=== PATIENT | male | born 1955 | race Caucasian/White ===

== ENCOUNTER 2018-06-29 06:40 | Emergency (ER) | payer SELFPAY ==
[~2018-06-29] VITALS: Ht 185.4 cm; Wt 102.1 kg
[2018-06-29] MEDS ORDERED: Catapres0.1 MG PO (07:29)
[2018-06-29] MEDS ORDERED: Zofran Odt4 MG SL (07:29)
[2018-06-29] MEDS ORDERED: Vistaril50 MG PO (07:29)
== END 2018-06-29 07:46 | disposition left against medical advice (07) ==
LOC: ER 06:40
DX: M54.5 Low back pain (principal); G89.29 Other chronic pain
CPT/HCPCS: 99283

== ENCOUNTER 2019-02-10 09:25 | Emergency (ER) | payer SELFPAY ==
[~2019-02-10 09:25] MED LIST: Catapres0.1 MG PO; LIDO700A20 TOP; SUBOXONE 8 MG-1 EACH SL; Vistaril50 MG PO; Zofran Odt4 MG SL
[2019-04-01] MEDS ORDERED: GABA300 (23:28)
[2019-04-02] MEDS ORDERED: NAPR500 PO (00:57)
[2019-04-02] MEDS ORDERED: Neurontin 300300 MG PO (00:57)
== END 2019-02-10 09:53 | disposition left against medical advice (07) ==
LOC: ER 09:25
DX: Z53.21 Procedure and treatment not carried out due to patient leaving prior to being seen by health care provider (principal); H44.009 Unspecified purulent endophthalmitis, unspecified eye

== ENCOUNTER 2019-03-16 09:06 | Emergency (ER) | payer MEDICARE ==
[~2019-03-16] VITALS: Ht 185.4 cm; Wt 87.1 kg
[2019-03-16] MEDS ORDERED: ERYT1OIN LEFTEYE (10:48)
[2019-04-01] MEDS ORDERED: GABA300 (23:28)
[2019-04-02] MEDS ORDERED: NAPR500 PO (00:57)
[2019-04-02] MEDS ORDERED: Neurontin 300300 MG PO (00:57)
== END 2019-03-16 10:59 | disposition home or self-care (01) ==
LOC: ER 09:06
DX: H10.023 Other mucopurulent conjunctivitis, bilateral (principal)
CPT/HCPCS: 99282

== ENCOUNTER 2019-04-02 03:22 | Inpatient (IN) | payer MEDICARE ==
[~2019-04-02] VITALS: Ht 185.4 cm; Wt 86.8 kg
[~2019-04-02 03:22] MED LIST changes: +ERYT1OIN LEFTEYE; +GABA300; +NAPR500 PO; +Neurontin 300300 MG PO
[2019-04-02 03:40] LABS: BASOPHILS ABSOLUTE AUTO 0.05 K/mm3 (0.00-0.23); BASOPHILS PERCENT AUTO 0 % (0-2); EOSINOPHILS PERCENT AUTO 0 % (0-6); Hematocrit 44.6 % (37.0-53.0); Hemoglobin 14.8 g/dL (13.5-17.5); IMMATURE GRAN ABSOLUTE AUTO 0.16 K/mm3 (0.00-0.10); IMMATURE GRAN PERCENT AUTO 1 % (0-1); LYMPHOCYTES ABSOLUTE AUTO 2.36 K/mm3 (0.84-5.20); LYMPHOCYTES PERCENT AUTO 13 % (21-46); MONOCYTES ABSOLUTE AUTO 2.65 K/mm3 (0.16-1.47); MONOCYTES PERCENT AUTO 14 % (4-13); Mean Corpuscular HGB 26.4 pg (26.0-34.0); Mean Corpuscular HGB Conc 33.2 g/dL (31.5-36.5); Mean Corpuscular Volume 80 fL (80-100); Mean Platelet Volume 10.1 fL (9.1-12.4); NEUTROPHILS ABSOLUTE AUTO 13.47 K/mm3 (1.96-9.15); NEUTROPHILS PERCENT AUTO 72 % (41-73); Platelet Count 385 K/mm3 (150-400); RDW Standard Deviation 43.1 fL (35.1-46.3); White Blood Cell Count 18.69 K/mm3 (4.00-11.30)
[2019-04-02 03:57] LABS: Ethanol (Alcohol), Blood, Med <3 mg/dL; Salicylate 3.1 mg/dL (2.8-20.0)
[2019-04-02 04:00] LABS: Thyroid Stimulating Hormone 0.355 uIU/mL (0.360-4.800)
[2019-04-02 04:03] LABS: Acetaminophen, Random 107.7 ug/mL (10.0-30.0); Alanine Aminotransfer (ALT/SGP 304 U/L (12-78); Albumin, Blood 3.7 g/dL (3.4-5.0); Alk Phos 94 U/L (50-136); Anion Gap 9 mmol/L (6-16); Aspartate Aminotrans (AST/SGOT 271 U/L (12-37); Blood Urea Nitrogen 22 mg/dL (8-24); Bun/Creatinine Ratio 30.1 (12.0-20.0); CO2, Blood 25 mmol/L (21-32); Calcium, Blood 8.7 mg/dL (8.5-10.1); Chloride, Blood 102 mmol/L (98-108); Creatinine, Blood 0.73 mg/dL (0.60-1.20); Globulin, Blood 3.7 g/dL (2.2-4.0); Glomerular Filtration Rate >60 (60-); Glucose, Blood 190 mg/dL (70-99); Potassium, Blood 4.7 mmol/L (3.5-5.5); Sodium, Blood 136 mmol/L (136-145); Total Protein, Blood 7.4 g/dL (6.4-8.2)
[2019-04-02 04:34] LABS: International Normalized Ratio 1.4; Prothrombin Time Results 14.4 Sec (9.7-11.5)
[2019-04-02 06:26] LABS: Source, Urine Clean Catch
[2019-04-02 06:31] LABS: Bilirubin, Urine Neg (Neg); Blood, Urine Neg (Neg); Glucose Qualitative, Urine Neg (Neg); Ketones, Urine 3+ (Neg); Leukocyte Esterase, Urine 1+ (Neg); Nitrite, Urine Neg (Neg); Protein, Urine Neg (Neg); Urobilinogen, Urine NORM (Normal)
[2019-04-02 06:37] LABS: Appearance, Urine Clear (Clear); Color, Urine Yellow (P-Yellow)
[2019-04-02 06:39] LABS: Red Blood Cells, Urine 0-2 /hpf (0-2)
[2019-04-02 06:40] LABS: Bacteria Rare /hpf; Squamous Epithelial Cells Rare /hpf (Few)
[2019-04-02 06:51] LABS: U Amphetamine Screen Not Detected; U Barbituate Screen Not Detected; U Methamphetamine Screen Not Detected
[2019-04-02 06:52] LABS: U Benzodiazapine Screen Not Detected; U Buprenorphine Screen DETECTED; U Cannabinoids Screen Not Detected; U Cocaine Screen Not Detected; U Methadone Screen Not Detected; U Opiates Screen Not Detected; U Oxycodone Screen Not Detected; U Phencyclidine Screen Not Detected; U Propoxyphene Screen Not Detected
--- NOTE | 2019-04-02 08:40 | NUR ---
ADMISSION: REPORT RECEIVED FROM ISIDRO Buck RN IN ED. PT ARRIVED TO ICU-08 AT APPROX 0830. ROOM MITIGATION HAS BEEN COMPLETED & DOCUMENTATION IN CHART. PT IS VERY DROWSY ON ARRIVAL TO THE UNIT. TX FROM GURNEY TO BED W/ SLIDER SHEET & 4 STAFF ASSIST. HE IS ANSWERING QUESTIONS & FOLLOWING DIRECTION APPROPRIATELY AT THIS TIME, QUICKLY FALLS BACK ASLEEP ONCE SETTLED. SUICIDE RISK ASSESSMENT HAS NOT BEEN COMPLETED, PT IS UNABLE/ UNWILLING TO ANSWER THE QUESTIONS ON ADMIT. HE OPENLY STS TO THIS RN THAT HE "JUST WANTS TO " & THAT HIS BACK PAIN IS "TOO MUCH TO LIVE WITH." ADMISSION IS COMPLETE, EXCEPT FOR SUICIDE RISK ASSESSMENT, MED REC & ADMISSION HX. WILL CONTINUE TO MONITOR & UPDATE NEEDED.
--- NOTE | 2019-04-02 10:29 | NUR ---
PT REQUESTING PAIN MEDICATION. CALL TO DR HADLEY. RECIEVED ORDER FOR HEATING PAD AND LIDOCAINE PATCHES. PT REFUSED AND STATED HE WANTS TO SPEAK WITH HER. NOTIFIED DR HADLEY OF THIS REQUEST. SHE STATES SHE CAN BE BY TO SEE HIM IN AN HOUR.
--- NOTE | 2019-04-02 12:13 | NUR ---
DR HADLEY CAME TO SEE PT. PT GAVE HER NAME OF PHARMACY AND DOCTOR. LOCATED PHARMACY AND ACQUIRED PT'S MED LIST. DR HADLEY AWARE. TO NOTIFY PT'S SERVICE PLUMBER FOR FURTHER INFORMATION.
[2019-04-02 12:45] LABS: International Normalized Ratio 1.89
[2019-04-02 13:07] LABS: Albumin, Blood 3.3 g/dL (3.4-5.0); Albumin/Globulin Ratio 0.9 (0.8-1.8); Bilirubin, Direct 0.5 mg/dL (0.0-0.3); Bilirubin, Indirect 0.7 mg/dL (0.1-0.7); Bilirubin, Total 1.2 mg/dL (0.1-1.0); Globulin, Blood 3.6 g/dL (2.2-4.0); Total Protein, Blood 6.9 g/dL (6.4-8.2)
--- NOTE | 2019-04-02 13:15 | NUR ---
CALL TO DR HADLEY TO LET HER BE AWARE OF PT'S BIGEMINY OFF AND ON SINCE 114. NO NEW ORDERS AT THIS TIME. COMPUTER SCIENCE INTERN AWARE
[2019-04-02 15:38] LABS: Hematocrit 43.3 % (37.0-53.0); Hemoglobin 14.3 g/dL (13.5-17.5); Mean Corpuscular Volume 79 fL (80-100); Mean Platelet Volume 10.3 fL (9.1-12.4); Platelet Count 358 K/mm3 (150-400); RDW Coefficient Variation 14.9 % (11.7-14.2); RDW Standard Deviation 42.8 fL (35.1-46.3); Red Blood Cell Count 5.49 M/mm3 (4.30-5.90); White Blood Cell Count 22.92 K/mm3 (4.00-11.30)
[2019-04-02 16:01] LABS: Alanine Aminotransfer (ALT/SGP 410 U/L (12-78); Albumin, Blood 3.2 g/dL (3.4-5.0); Alk Phos 89 U/L (50-136); Anion Gap 8 mmol/L (6-16); Aspartate Aminotrans (AST/SGOT 297 U/L (12-37); Bilirubin, Total 1.2 mg/dL (0.1-1.0); Blood Urea Nitrogen 19 mg/dL (8-24); Bun/Creatinine Ratio 29.2 (12.0-20.0); CO2, Blood 24 mmol/L (21-32); Calcium, Blood 8.1 mg/dL (8.5-10.1); Chloride, Blood 109 mmol/L (98-108); Creatinine, Blood 0.65 mg/dL (0.60-1.20); Globulin, Blood 3.3 g/dL (2.2-4.0); Glomerular Filtration Rate >60 (60-); Glucose, Blood 138 mg/dL (70-99); Potassium, Blood 3.3 mmol/L (3.5-5.5); Sodium, Blood 141 mmol/L (136-145); Total Protein, Blood 6.5 g/dL (6.4-8.2)
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
[2019-04-02 18:11] LABS: Prothrombin Time Results 18.9 Sec (9.7-11.5)
--- NOTE | 2019-04-02 18:26 | NUR ---
SHIFT SUMMARY: NO ACUTE CHANGES SINCE PRIOR UPDATES. DR DELGADO NOW ROUNDING IN UNIT, WILL SEE THE PT SOON. HE REMAINS A&O, COOPERATIVE W/ CARE BUT BECOMES IRRITABLE W/ STAFF AT TIMES. LS ARE CLEAR T/O, PT REMAINS ON RA W/ O2 SATS > 92%. MONITOR SHOWS SR W/ AVG 70s. BIGEMINAL PVC's NOTED AT TIMES. PT HAS HAD NO C/O NAUSEA SINCE ADMIT. NPO, TOLERATING ICE CHIPS WELL. VOIDING W/O DIFFICULTY USING URINAL AT BEDSIDE. L WRIST LAC REMAINS WELL DRESSED. SUICIDE PRECAUTIONS IN PLACE, CAMERA ON. WILL CONTINUE TO MONITOR & REPORT OFF TO ONCOMING RN.
--- NOTE | 2019-04-02 20:24 | NUR ---
[place] [facility] Care: Patient sleeping, easily roused to verbal stimuli, oriented x4. Denies suicidal ideations at this time. Patient states he cut his wrist because Emergency Department was not treating his pain. Patient states he has no plan of hurting himself or others. Denies dyspnea or SOB, O2-98% on RA. C/o back pain (chronic), effectively managed with routine does of Suboxone. Laceration to left wrist with gail and coban dressing, C/D/I. Lt hand sensation, temp, color all wnl. 2MD hold in place, patient refusing to sign "civil rights" form, but calm and cooperative with staff. Bed-alarm in place for safety. Will continue to monitor for pain, comfort, safety.
[2019-04-03 00:52] LABS: International Normalized Ratio 2.08; Prothrombin Time Results 20.6 Sec (9.7-11.5)
[2019-04-03 00:56] LABS: Acetaminophen, Random 5.4 ug/mL (10.0-30.0); Albumin, Blood 2.8 g/dL (3.4-5.0); Albumin/Globulin Ratio 0.9 (0.8-1.8); Bilirubin, Direct 0.6 mg/dL (0.0-0.3); Bilirubin, Indirect 0.8 mg/dL (0.1-0.7); Bilirubin, Total 1.4 mg/dL (0.1-1.0); Globulin, Blood 3.1 g/dL (2.2-4.0); Total Protein, Blood 5.9 g/dL (6.4-8.2)
--- NOTE | 2019-04-03 01:17 | NUR ---
Labs/Call to Poison Control: 0000hr labs obtained, showed Tylenol level of 5.4, but LFT continuing to increase. Call placed to Dr. Heart to determine if NAC gtt should be continued, instructed to call Poison Control and follow their recommendation's. Call then placed to Poison Control, received instructions to continue NAC gtt and re-check LFT's, INR, and Tylenol level in 12hr. Also received instruction for criteria to be met for stopping NAC gtt. Criteria includes LFT's decreasing, AST less than 1,000, INR less than 2.0, and Tylenol not detected. Patient continues to be asymptomatic. Will continue to monitor for pain, safety comfort.
[2019-04-03 05:43] LABS: BASOPHILS ABSOLUTE AUTO 0.04 K/mm3 (0.00-0.23); BASOPHILS PERCENT AUTO 0 % (0-2); EOSINOPHILS PERCENT AUTO 0 % (0-6); Hemoglobin 13.3 g/dL (13.5-17.5); IMMATURE GRAN PERCENT AUTO 1 % (0-1); LYMPHOCYTES ABSOLUTE AUTO 1.65 K/mm3 (0.84-5.20); LYMPHOCYTES PERCENT AUTO 10 % (21-46); MONOCYTES ABSOLUTE AUTO 1.09 K/mm3 (0.16-1.47); MONOCYTES PERCENT AUTO 7 % (4-13); Mean Corpuscular HGB 26.1 pg (26.0-34.0); Mean Corpuscular HGB Conc 33.3 g/dL (31.5-36.5); Mean Corpuscular Volume 79 fL (80-100); Mean Platelet Volume 10.3 fL (9.1-12.4); NEUTROPHILS ABSOLUTE AUTO 13.71 K/mm3 (1.96-9.15); NEUTROPHILS PERCENT AUTO 83 % (41-73); Platelet Count 279 K/mm3 (150-400); RDW Coefficient Variation 15.1 % (11.7-14.2); RDW Standard Deviation 43.2 fL (35.1-46.3); Red Blood Cell Count 5.09 M/mm3 (4.30-5.90); White Blood Cell Count 16.59 K/mm3 (4.00-11.30)
[2019-04-03 06:04] LABS: Alanine Aminotransfer (ALT/SGP 574 U/L (12-78); Albumin, Blood 2.7 g/dL (3.4-5.0); Albumin/Globulin Ratio 0.9 (0.8-1.8); Alk Phos 84 U/L (50-136); Anion Gap 4 mmol/L (6-16); Aspartate Aminotrans (AST/SGOT 355 U/L (12-37); Bilirubin, Total 1.4 mg/dL (0.1-1.0); Blood Urea Nitrogen 20 mg/dL (8-24); Bun/Creatinine Ratio 32.7 (12.0-20.0); CO2, Blood 28 mmol/L (21-32); Chloride, Blood 105 mmol/L (98-108); Creatinine, Blood 0.61 mg/dL (0.60-1.20); Globulin, Blood 2.9 g/dL (2.2-4.0); Glomerular Filtration Rate >60 (60-); Glucose, Blood 122 mg/dL (70-99); Magnesium, Blood 2.1 mg/dL (1.6-2.4); Potassium, Blood 3.4 mmol/L (3.5-5.5); Sodium, Blood 137 mmol/L (136-145); Total Protein, Blood 5.6 g/dL (6.4-8.2)
--- NOTE | 2019-04-03 06:07 | NUR ---
Shift Summary: Patient slept through entire shift. Easily roused to verbal stimuli, remains calm and cooperative [facility] staff. C/o back pain effectively managed with routine medication. Denies dyspnea/SOB, O2-93-97$ on RA. Continues on NAC gtt at 65ml/hr, Bilateral peripheral IV's patient intact. Voiding using urinal in bed without difficulty.
[2019-04-03] MEDS ORDERED: MELO7.5 PO (08:06)
--- NOTE | 2019-04-03 08:10 | NUR ---
INITIAL ASSESSMENT PATIENT SLEEPING SOUNDLY UPON ENTERING ROOM. PATIENT WAKES TO VERBAL STIMULI. PATIENT ALERT AND ORIENTED X 4, AFEBRILE. PATIENT CALM AND COOPERATIVE. PATIENT IS NOTED TO HAVE FAST AND EXCESSIVE TALKING. PATIENT STATES "THE ONLY REASON I TRIED TO KILL MYSELF IS BECAUSE I COULDN'T TAKE THE PAIN ANYMORE". PATIENT ASKED IF HE WOULD WANT TO KILL HIMSELF IF HE WASN'T IN ANY PAIN AND PATIENT STATES "WHY WOULD I? I HAVE A GREAT LIFE. IT'S JUST THE PAIN. IT IS SO BAD". PATIENT COMPLAINS OF CURRENT 10 CHRONIC LUMBAR BACK PAIN. PATIENT SATTING 90% AND GREATER ON RA. LUNGS CLEAR T/O. PATIENT IN SR, HR 70S TO 80S. BP STABLE. PULSES STRONG. ABDOMEN SOFT, NONDISTENDED, WITH NORMOACTIVE BS. PATIENT REPORTS THAT HE HAS BEEN HAVING CONSTIPATION LATELY AND HAS NOT HAD A BM SINCE THE . PATIENT USING BED SIDE URINAL INDEPENDENTLY. URINE DARK TEA COLORED. SCAB NOTED TO R LOWER ESPARZA. L WRIST LACERATION NOTED- SELF INFLICTED. SUTURES INTACT. NO S/S OF INFECTION. NO BLEEDING NOTED. DRESSING APPLIED. NAC DRIP INFUSING AT 65 MLS/ HOUR, NS TKO. PATIENT REPOSITIONING SELF IN BED. BED LOW, CALL LIGHT IN REACH. WILL CONTINUE MONITOR FREQUENTLY THROUGHOUT SHIFT.
--- NOTE | 2019-04-03 09:36 | NUR ---
UPDATED DR. HADLEY ON PATIENT STATUS. INFORMED THAT POTASSIUM 3.4 THIS AM. INFORMED THAT PER POISON CONTROL, NAC DRIP TO REMAIN UNTIL LIVER FUNCTION TESTS BEGIN TO DECREASE, TYLENOL LEVEL NOT DETECTED, INR LEVEL UNDER 2 AND AST UNDER 1000. ORDERS RECEIVED. ALSO, INFORMED THAT NO BM SINCE THE - DREsther STATED THAT SHE WOULD ORDER BOWEL CARE.
--- NOTE | 2019-04-03 11:00 | NUR ---
BEBE WITH CARE MANAGEMENT IN TO SEE PATIENT. PATIENT EXPRESSES CONCERNS ABOUT HIS DOG THAT IS HOME ALONE AND HAS NO WATER OR FOOD. PATIENT ALSO EXPRESSES CONCERN THAT HE WOULD LIKE TO UPDATE HIS BROTHER ON HIS STATUS AND INFORM BROTHER ABOUT DOG AND THAT HOUSE IS NOT LOCKED. CARE MANAGEMENT RN STATED THAT SHE WOULD MAKE SOME PHONE CALLS.
[2019-04-03 12:50] LABS: International Normalized Ratio 2.08; Prothrombin Time Results 20.6 Sec (9.7-11.5)
[2019-04-03 13:05] LABS: Acetaminophen, Random <2.0 ug/mL (10.0-30.0); Alanine Aminotransfer (ALT/SGP 761 U/L (12-78); Albumin, Blood 2.7 g/dL (3.4-5.0); Albumin/Globulin Ratio 0.9 (0.8-1.8); Alk Phos 84 U/L (50-136); Aspartate Aminotrans (AST/SGOT 463 U/L (12-37); Bilirubin, Direct 0.6 mg/dL (0.0-0.3); Bilirubin, Indirect 0.8 mg/dL (0.1-0.7); Bilirubin, Total 1.4 mg/dL (0.1-1.0); Globulin, Blood 2.9 g/dL (2.2-4.0); Total Protein, Blood 5.6 g/dL (6.4-8.2)
--- NOTE | 2019-04-03 13:07 | NUR ---
PATIENT SLEEPING SOUNDLY UPON ENTERING ROOM. NO CHANGES IN NEURO FUNCTION. PATIENT HAD BED BATH AND WAS UP TO CHAIR EARLIER IN SHIFT. PATIENT CURRENTLY REPORTING 1.5/ 10 BACK PAIN AND STATES THAT 2/10 PAIN IS MANAGEABLE FOR HIM. VITAL SIGNS STABLE. PATIENT HAS POOR APPETITE. PATIENT GETTING AROUND ROOM WITH SBA. NO OTHER ACUTE CHANGES TO NOTE ON AT THIS TIME. WILL CONTINUE TO MONITOR.
--- NOTE | 2019-04-03 13:30 | NUR ---
POISON CONTROL CALLED FOR SECOND TIME THIS SHIFT. UPDATED ON PATIENT STATUS, VS AND LABS. NAC DRIP TO CONTINUE BASED ON LAB RESULTS. MORE LABS TO BE DRAWN AT 0120 IN MORNING.
--- NOTE | 2019-04-03 14:19 | NUR ---
DR. HADLEY CALLED TO INFORM THAT PATIENT COMPLAINING ABOUT 5/10 BACK PAIN AND THAT IT IS MAKING HIS STOMACH HURT AND MAKING HIM FEEL NAUSEOUS. INFORMED THAT PATIENT FEELS IF FENTANYL PATCH WOULD WORK BEST FOR HIM. ORDER FOR TORADOL RECEIVED.
--- NOTE | 2019-04-03 15:08 | NUR ---
CONSENT FOR MEDICAL RECORDS OBTAINED FROM PATIENT AND FAXED TO THE 2 PAIN CLINICS HE HAS BEEN GOING TO.
--- NOTE | 2019-04-03 16:03 | NUR ---
PATIENT RESTING QUIETLY IN BED UPON ENTERING ROOM. PATIENT STATES HE IS IN 3/10 PAIN IN BACK, WHICH IS IMPROVED FROM 5/10 PAIN EARLIER. PATIENT AFEBRILE. VITAL SIGNS STABLE. MOM GIVEN FOR COMPLAINTS OF CONSTIPATION. PATIENT NAPPING ON AND OFF. NO OTHER ACUTE CHANGES TO NOTE ON AT THIS TIME. WILL CONTINUE TO MONITOR.
--- NOTE | 2019-04-03 17:32 | NUR ---
SPOKE TO DR. DOWNING AND UPDATED ON PATIENT'S STATUS. INFORMED THAT NURSE SPOKE WITH PATIENT'S BROTHER TODAY AND THAT BROTHER IS VERY CONCERNED THAT PATIENT WILL GET PAIN MEDICATIONS LIKE HE IS WANTING AND THEN WILL CONTINUE HAVING PROBLEMS BECAUSE "HE HAS BEEN HAVING MENTAL HEALTH PROBLEMS FOR AROUND 25 YEARS NOW". BROTHER STATES THAT PATIENT IS VERY PARANOID, WITH THOUGHTS THAT FBI ARE AFTER HIM. INFORMED THAT BROTHER FEELS PATIENT NEEDS INPATIENT PSYCH TREATMENT AND IS WORRIED THAT IF PATIENT IS DISCHARGED THAT HE WILL NOT FOLLOW UP WITH ANY OF THE APPOINTMENTS MADE. BROTHER FEELS THAT IF PATIENT IS DISCHARGED AND DOES NOT HAVE INPATIENT PSYCH OR ANYONE TO WATCH HIM THAT THERE WON'T BE ANYTHING TO STOP HIM FROM "CUTTING HIS WRIST AGAIN". DR. DOWNING INFORMED THAT THE PATIENT IS CONCERNED ABOUT BEING DISCHARGED WITHOUT A PRESCRIPTION FOR SOME KIND OF PAIN MEDICATION AND THAT HE WILL TRY AND TAKE HIS LIFE AGAIN IF HE DOESN'T HAVE ANY. PATIENT STATES HE NEEDS A "BRIDGE PRESCRIPTION" TO GET HIM FROM DISCHARGE UNTIL HE CAN SEE A OUTPATIENT AND GET ANOTHER PRESCRIPTION THEN. PATIENT STATES THAT MAYBE HE SHOULD STAY IN HOSPITAL UNTIL OUTPATIENT APPOINTMENT IN ORDER TO STAY SAFE BECAUSE PAIN CAN BE CONTROLLED HERE. HOWEVER, PATIENT THEN RAISES THE CONCERN THAT "DOCTORS DON'T USUALLY GIVE PRESCRIPTIONS FOR PAIN MEDICATION ON THE FIRST VISIT". ALL OF THIS INFORMATION RELAYED TO DR. DOWNING. DOCTOR STATES THAT HE WILL BE TALKING TO DR. HADLEY AND THEN WILL BE GOING IN ROOM TO SEE PATIENT. NO ORDERS OBTAINED AT THIS TIME.
--- NOTE | 2019-04-03 17:55 | NUR ---
SHIFT ASSESSMENT PATIENT NAPPED ON AND OFF T/O THE DAY. PATIENT REMAINED ALERT AND ORIENTED X 4, AFEBRILE. NO PARANOIA NOTED. PATIENT CALM AND COOPERATIVE. PATIENT STATES HE ONLY THINKS ABOUT SUICIDE IF HE CAN'T GET HIS PAIN UNDER CONTROL. PATIENT GIVEN PRN LIDOCAINE PATCHES AND TORADOL FOR COMPLAINTS OF CHRONIC BACK PAIN TODAY. PATIENT REMAINED SATTING 90% AND GREATER ON RA. LUNGS REMAINED CLEAR T.O. PATIENT REMAINED IN SR, HR 60S TO 80S. BP STABLE. MOM GIVEN TODAY REPORTS NO BM SINCE THE . PATIENT HAS POOR APPETITE, BUT IS TOLERATING RENAL DIET WITH NO PROBLEMS. PATIENT CONTINUES TO VOID DARK TEA COLORED URINE. DRESSING TO L WRIST LACERATION REMAINS C/D/I. NS TKO, NAC DRIP REMAINS INFUSING AT 65 MLS/ HOUR. LABS WILL BE TAKEN AGAIN AT 0120 TO ASSESS LIVER FUNCTION, TYLENOL LEVEL AND PT/INR LEVELS. PATIENT RECEIVED 20 MEQ POTASSIUM IV TODAY FOR LEVEL OF 3.4. PATIENT RECEIVED BED BATH THIS SHIFT AND GOT OOB TO CHAIR WITH SBA. BED LOW, CALL LIGHT IN REACH. NO CURRENT COMPLAINTS. REPORT GIVEN TO ASSUMING MEDICAL FLOOR NURSE. PATIENT WILL BE TRANSFERRING TO ROOM 347.
--- NOTE | 2019-04-03 18:12 | NUR ---
Per miya, I was tasked to meet with Mr. Watts to offer advanced care planning. Per RN, he had been given this information and appeared uninterested. He is also being treated for a suicide attempt, therefore this did not seem to be the time for this conversation. I will remain available.
--- NOTE | 2019-04-03 18:31 | NUR ---
PATIENT TRANSFERRED TO MEDICAL FLOOR. ASSUMING NURSE RECEIVED.
[2019-04-04 01:38] LABS: International Normalized Ratio 1.92; Prothrombin Time Results 19.2 Sec (9.7-11.5)
[2019-04-04 01:48] LABS: Acetaminophen, Random 5.9 ug/mL (10.0-30.0)
[2019-04-04 01:49] LABS: Albumin/Globulin Ratio 0.9 (0.8-1.8); Bilirubin, Direct 0.4 mg/dL (0.0-0.3); Bilirubin, Indirect 0.4 mg/dL (0.1-0.7); Bilirubin, Total 0.8 mg/dL (0.1-1.0); Globulin, Blood 2.3 g/dL (2.2-4.0); Total Protein, Blood 4.3 g/dL (6.4-8.2)
[2019-04-04 04:07] LABS: Base Excess Venous 4.2 mmol/L; Bicarbonate Venous 27.9 mmol/L (24.0-30.0); PCO2 Venous 38.7 mmHg (38-42); PO2 Venous 110 mmHg (38-42); pH Blood Venous 7.47 (7.34-7.37)
--- NOTE | 2019-04-04 07:11 | NUR ---
SHIFT SUMMARY PT IS A 63 Y/O MALE, TRANSFERED FROM ICU AFTER A TYLENOL OVERDOSE. HE WAS MEDICATED WITH SCHEDULED SUBOXONE FOR CHRONIC BACK PAIN. PT IS A&O X 3, AND A SBA IN THE ROOM. AFTER PT'S LAB RECHECKS AT 0100, PT'S AST INCREASED FROM 463 TO 1870, AND ALT INCREASED FROM 761 TO 2308. HIS ACETAMINOPHEN LEVELS ALSO INCREASED FROM < 2.0 TO 5.9. PER POISON CONTROL SUGGESTION, AFTER CONSULTING WITH DR EDWARDS, HIS IV ACETYLCYSTEINE DRIP WAS CONTINUED AT ITS CURRENT RATE. A LACTIC ACID AND VBG WERE ALSO ORDER TO ENSURE THAT PT WAS NOT ACIDOTIC. LACTIC CAME BACK CRITICAL AT 2.7. AT AM VITALS AT 0405, PT'S BP WAS AT 75/49. PT REPORTED FEELING WEAK AND LIGHTHEADED, AND WAS PALE WITH COOLER EXTREMITIES COMPARED TO START OF SHIFT. THE HOSPITALIST DR EDWARDS WAS CONSULTED, AND A 500 ML BOLUS WAS ORDERED. AFTER THE BOLUS AT 0517, HIS BP CAME UP TO 82/46. DR EDWARDS WAS CONSULTED AGAIN, AND A 1L BOLUS OF NS ORDERED. AFTER THE 1L BOLUS WAS COMPLETE AT 0640, PT'S BP WAS STILL AT 82/46. PT'S HEART RATE WAS ALSO SLIGHTLY ELEVATED FROM PREVIOUS IN THE 90S. ALL OTHER VITALS STABLE. REPORT GIVEN TO ONCOMING HUGO.
--- NOTE | 2019-04-04 07:50 | NUR ---
PT TRANSFERED THIS AM THE PTS REPEAT BP AFTER 1.5L/MIN OF BOLUS WAS 83/51, LACTIC ACID ELEVATED @ 2.4 REPEAT DRAW WAS 3.7, PT WAS DUSKY IN COLOR, A CALL WAS MADE TO AND IT WAS DECIDED THAT THE PT BE TRANSFERED TO ICU, REPORT WAS GIVEN TO THE RECIEVING ICU NURSE FOR ICU ROOM 1, THE PT WAS ALERT AT TIME OF TRANSFER
--- NOTE | 2019-04-04 07:50 | NUR ---
PT ARRIVAL NOTE: PT ARRIVED VIA BED, TRANSFERRED OVER AND ORIENTED PT TO ROOM. PT DROWSY, BUT AWAKENS EASILY TO VERBAL STIMLULI. PT MAIN CONCERN IS HIS ONGOING CHRONIC BACK PAIN. PT REPORTS HIS PAIN 5/10 IN THE BACK. MULTIPLE TIMES THIS RN WAS EXAMING PT, PT STATES, "THIS IS TOO MUCH, "YOU GUYS DON'T CARE ABOUT MY PAIN," I NEED MY SUBOXONE!" PT TALKS OVER STAFF AND INSIST ON RECEIVING HIS MEDICATIONS, EVEN AFTER EXPLAINING TO PT ABOUT HYPOTENSION AND USE OF NARCOTICS. PT ABLE TO ASSIST WITH TURNS IN THE BED, BUT BACK PAIN LIMITS PT ABILITY TO MOVE. LUNGS ARE CLEAR T/O BILATERALLY. SP02 SATS >90% ON RA. PT REMAINS HYPOTENSIVE AT THIS TIME, DESPITE 1 LITER BOLUS ON MEDICAL FLOOR. WILL DICUSS FURTHER BOLUS WITH . ABD SOFT/FLAT/DENIES PAIN WITH PALPATION. BT'S ACTIVE X4 QAUDS. GIB ODOR NOTED IN ROOM. ASKED PT IF HE HAS HAD A HX OF GIB'S, WHICH PT DENIES. LT WRIST LACERATION, DRSG CHANGED AT THIS TIME TO A [place]. SUTURED WOUND W/MINIMAL SURROUNDING ERYTHEMA, NO DRAINAGE, SUTURES INTACT.
--- NOTE | 2019-04-04 08:18 | NUR ---
CALLED AND UPDATED POISON CONTROL ON RECENT LAB VALUES. NO NEW RECOMMENDATIONS AT THIS TIME. WILL RECHECK BLOODWORK AT 1300 TODAY.
--- NOTE | 2019-04-04 08:39 | NUR ---
CALLED DR HADLEY RE: PT'S UNCONTROLLED BACK PAIN. DR HADLEY REPORTS SHE WILL BE IN TO SEE PT AND DISCUSS PAIN MANAGEMENT. PT GIVEN AM NEURONTIN/PRN TORADOL. OFFERRED HEAT/ICE/PRN LIDOCAINE PATCHES, AND PT DECLINED.
--- NOTE | 2019-04-04 09:03 | NUR ---
DR HADLEY IN TO ASSESS PT AND DISCUSS PAIN CONTROL AND PT CONCERNS. SEE NEW ORDERS.
--- NOTE | 2019-04-04 09:41 | NUR ---
CALLED DR HADLEY RE: CONTINUED HYPOTENSION. STARTED 2ND 500ML NS BOLUS.
--- NOTE | 2019-04-04 10:09 | NUR ---
SPOKE WITH DR FRANCE. ENCOURAGE PT TO DRINK WATER, THEN NPO AT 1300 FOR ENDO.
--- NOTE | 2019-04-04 10:15 | NUR ---
CALLED AND SPOKE WITH DR HADLEY RE: CONTINUED HYPOTENSION DESPITE 1L NS BOLUS. CONSULTING DR ROME. WILL PLACE PICC LINE AND DR ROME TO MANAGE HYPOTENSION.
[2019-04-04 11:23] LABS: PCO2 Venous 44 mmHg (38-42); pH Blood Venous 7.38 (7.34-7.37)
[2019-04-04 11:33] LABS: BASOPHILS ABSOLUTE AUTO 0.01 K/mm3 (0.00-0.23); BASOPHILS PERCENT AUTO 0 % (0-2); EOSINOPHILS PERCENT AUTO 0 % (0-6); Hemoglobin 6.1 g/dL (13.5-17.5); IMMATURE GRAN ABSOLUTE AUTO 0.13 K/mm3 (0.00-0.10); IMMATURE GRAN PERCENT AUTO 1 % (0-1); LYMPHOCYTES PERCENT AUTO 11 % (21-46); MONOCYTES PERCENT AUTO 13 % (4-13); Mean Corpuscular HGB 26.3 pg (26.0-34.0); Mean Corpuscular HGB Conc 32.1 g/dL (31.5-36.5); Mean Corpuscular Volume 82 fL (80-100); NEUTROPHILS ABSOLUTE AUTO 9.62 K/mm3 (1.96-9.15); NEUTROPHILS PERCENT AUTO 75 % (41-73); Platelet Count 161 K/mm3 (150-400); RDW Coefficient Variation 15.3 % (11.7-14.2); RDW Standard Deviation 45.3 fL (35.1-46.3); Red Blood Cell Count 2.32 M/mm3 (4.30-5.90); White Blood Cell Count 12.76 K/mm3 (4.00-11.30)
--- NOTE | 2019-04-04 11:45 | NUR ---
ULTRASOUND OF ABD BEING DONE.
--- NOTE | 2019-04-04 11:45 | NUR ---
PICC LINE PLACED IN THE RT UA WITHOUT DIFFICULTY. AWAITING SLIPS FOR 2 UNITS OF PRBC'S.
[2019-04-04 11:47] LABS: International Normalized Ratio 2.27
[2019-04-04 11:53] LABS: Albumin, Blood 1.6 g/dL (3.4-5.0); Albumin/Globulin Ratio 0.8 (0.8-1.8); Alk Phos 57 U/L (50-136); Anion Gap 6 mmol/L (6-16); Bilirubin, Total 0.4 mg/dL (0.1-1.0); Blood Urea Nitrogen 59 mg/dL (8-24); Bun/Creatinine Ratio 76.1 (12.0-20.0); CO2, Blood 25 mmol/L (21-32); Calcium, Blood 6.8 mg/dL (8.5-10.1); Chloride, Blood 108 mmol/L (98-108); Creatinine, Blood 0.78 mg/dL (0.60-1.20); Globulin, Blood 1.9 g/dL (2.2-4.0); Glomerular Filtration Rate >60 (60-); Glucose, Blood 117 mg/dL (70-99); Prothrombin Time Results 22.3 Sec (9.7-11.5); Sodium, Blood 139 mmol/L (136-145); Total Protein, Blood 3.5 g/dL (6.4-8.2); Troponin I <0.015 ng/mL (0.000-0.040)
[2019-04-04 12:03] LABS: Acetaminophen, Random 8.9 ug/mL (10.0-30.0); Albumin, Blood 1.6 g/dL (3.4-5.0); Albumin/Globulin Ratio 0.8 (0.8-1.8); Bilirubin, Direct 0.2 mg/dL (0.0-0.3); Bilirubin, Indirect 0.2 mg/dL (0.1-0.7); Bilirubin, Total 0.4 mg/dL (0.1-1.0); Globulin, Blood 1.9 g/dL (2.2-4.0); Total Protein, Blood 3.5 g/dL (6.4-8.2)
[2019-04-04 12:05] LABS: Alanine Aminotransfer (ALT/SGP 5137 U/L (12-78); Aspartate Aminotrans (AST/SGOT 4437 U/L (12-37)
--- NOTE | 2019-04-04 12:20 | NUR ---
CHEST/ABD XRAY BEING DONE.
--- NOTE | 2019-04-04 12:45 | NUR ---
STARTED 1ST UNIT PRBC'S. WILL GIVE 2 UNITS PRBC'S, THEN RECHECK BLOOD WORK AFTER THESE ARE COMPLETE.
--- NOTE | 2019-04-04 14:20 | NUR ---
PT UPDATE: PT FINISHED WITH 2ND UNIT PRBC'S. WILL RECHECK H+H IN NEAR FUTURE AND MAINTAIN HGB >8.
[2019-04-04 15:09] LABS: Hematocrit 21.8 % (37.0-53.0); Hemoglobin 7.1 g/dL (13.5-17.5)
--- NOTE | 2019-04-04 16:42 | NUR ---
DR FRANCE IN TO CONSULT ON PT. PT JUST FINISHED USING BEDPAN AND HAD A LARGE MELENA STOOL. DR FRANCE TO BE BACK SOON TO DO ENDOSCOPY R/T CONTINUED S/SX OF GIB. STARTED 3RD UNIT OF BLOOD AND WILL RECHECK H+H AFTER THIS ONE UNIT OF BLOOD.
--- NOTE | 2019-04-04 16:46 | NUR ---
SHIFT SUMMARY: PT REMAINS DROWSY T/O SHIFT, BUT CONT TO AWAKEN EASILY TO VERBAL STIMULI. PT HAS CONT CHRONIC BACK PAIN. PT NORMALLY TAKE SUBOXONE FOR THIS PAIN, HOWEVER, UNABLE TO DO SO AT THIS TIME R/T HIS CLINICAL PICTURE. LUNGS REMAIN CLEAR AFTER 3 LITER BOLUS OF NS, AND CURRENTLY RECEIVING 3RD UNIT PRBC'S. HR REGULAR SR- 90-100'S, 130-140'S WITH EXERTION. PT REPORTS HE "IS DIZZY." PICC LINE PLACED IN RT UA, WITH LEVOPHED @ 7MCG/MIN AT THIS TIME. NAC GTT PER POISON CONTROL RECOMMENDATIONS. SCD'S IN PLACE BILATERALLY. ABD SOFT/ROUND/TENDER TO PALPATION. BT'S HYPERACTIVE 4 QAUD. NPO FOR ENDOSCOPPY PER DR FRANCE. PT VOIDS SM AMTS OF CLEAR, DARK YELLOW URINE PER URINAL.
--- NOTE | 2019-04-04 17:09 | NUR ---
2 UNITS FFP ORDERED STAT PER DR FRANCE, HE WOULD LIKE PT TO RECEIVE THIS PRIOR TO HIS ENDOSCOPY.
--- NOTE | 2019-04-04 18:17 | NUR ---
PT UPDATE: DAY SURGERY STAFF HERE SETTING UP FOR ENDOSCOPY. PT FINISHING UP 2ND UNIT OF FFP.
--- NOTE | 2019-04-04 18:32 | NUR ---
04/04/191831 Pipo Kelley PATIENT DETERMINED TO BE ASA APPROPRIATE FOR PROPOFOL SEDATION PRIOR TO START OF PROCEDURE BY DR. Alon Heath Placed3-LEAD EKG REVIEWED WITH PHYSICIAN PRIOR TO START OF PROCEDURE.History, Chart, Medications and Allergies reviewed before start of procedure.MONITOR INTACT WITH CONTINUOUS PULSE OXIMETRY AND INTERMITTENT BP.O2 VIA N/C INTACT THROUGHOUT SEDATION/PROCEDURE.
[2019-04-04 18:47] LABS: Hematocrit 19.8 % (37.0-53.0); Hemoglobin 6.5 g/dL (13.5-17.5)
--- NOTE | 2019-04-04 19:52 | NUR ---
PT UPDATE: 1899-REPORTED OFF TO HUGO CAGLE WHOM IS ASSUMING CARE OF THIS PT. ENDOSCOPY UNDERWAY AND DUODENAL BLEEDING FOUND PER DR. FRANCE. DR SEGUNDO URGENTLY CALLED AND AWAITING HIS ARRIVAL FOR FURTHER PLAN OF CARE. DR ROME AT THE BEDSIDE FOR ASSISTANCE. PT CURRENTLY ON LEVOPHED @ 20MCG/MIN AND VASOPRESSIN GTT. 192-DR SEGUNDO AT THE BEDSIDE AND WILL BE TAKING PT URGENTLY TO THE OR. RN TECHNICAL INTERN NOTIFIED AND OR CALLED IN. 2 ADD'L UNITS OF PRBC'S STARTED BY HUGO CAGLE. 1927-ETOMIDATE 20MG GIVEN IVP FOR INTUBATION. 1928-ROCURONIUM 20MG GIVEN IVP. 1930-ETOMIDATE 20MG GIVEN IVP FOR INTUBATION. 1934-PT INTUBATED WITH 8.0F ETT, 23CM AT THE LIP. BILATERAL BREATH SOUNDS HEARD.
--- NOTE | 2019-04-04 20:30 | NUR ---
ASSUMED CARE OF PT AT 1900. REPORT RECEIVED AT BEDSIDE. PT IN PROCESS AT THAT TIME OF ENDOSCOPY WITH DR FRANCE. ACTIVE BLEED FOUND. PT TO OR AT 2009. LEVEL ONE MASS TRANSFUSSION IN USE. PT TO RECEIVE PRBC'S, PLATELETS, AND FFP. DID ACCOMPANY PT TO OR AND MANAGED TRANSFUSIONS, AND SUPPORT OF BLOOD PRESSURE. THIS ALL DONE UNDER OR DOCUMENTATION. LEVOPHED AND VASSOPRESSIN FOR SUPPORT. PT HAD BEEN INTUBATED PRIOR TO LEAVING FOR OR. CHEST X RAY WAS DONE AND VERIFIED. PT HAS COPIOUS AMOUNTS OF BLOOD FROM RECTUM.
--- NOTE | 2019-04-04 21:35 | NUR ---
04/04/192133 Paul Mccord PT ARRIVED TO OR VIA BED WITH CLASSICS PROFESSOR GURJIT. YARY RN AND MIRIAN RN ALSO HELPING ASSIT WITH PT CARE. PT WAS MOVED OVER TO OR TABLE BY TEAM. DR LOPEZ AND DR SEGUNDO ATTEMPED TO PLACE AN ARTERIAL ART LINE TO RIGHT WRIST WITH OUT SUCCESS. DR LOPEZ THEN PLACED A CENTRAL LINE TO RIGHT IJ. SEE DR KIM'S NOTES. GURJIT ARIAS AND DR LOPEZ CON'T TO RUN BLOOD AND PLASMA TOGETHER. PT HAD A SIGNIFICANT AMOUNT OF BLOOD POOLED BETWEEN PT'S LEGS AND BUTTOCKS. SOME OF THIS BLOOD WAS CLEANED OFF BY THIS RN AND YARY ARIAS. PT WAS PREPPED FOR SURGERY.
[2019-04-04 22:16] LABS: PCO2 Arterial 52.5 mmHg (35-45); PO2 Arterial 304 mmHg (80-100); pH Blood Arterial 7.31 (7.35-7.45)
[2019-04-04 22:20] LABS: BASOPHILS ABSOLUTE AUTO 0.02 K/mm3 (0.00-0.23); BASOPHILS PERCENT AUTO 0 % (0-2); EOSINOPHILS ABSOLUTE AUTO 0.01 K/mm3 (0.00-0.68); EOSINOPHILS PERCENT AUTO 0 % (0-6); Hemoglobin 8.4 g/dL (13.5-17.5); IMMATURE GRAN ABSOLUTE AUTO 0.59 K/mm3 (0.00-0.10); IMMATURE GRAN PERCENT AUTO 5 % (0-1); LYMPHOCYTES ABSOLUTE AUTO 1.59 K/mm3 (0.84-5.20); LYMPHOCYTES PERCENT AUTO 14 % (21-46); MONOCYTES ABSOLUTE AUTO 1.01 K/mm3 (0.16-1.47); MONOCYTES PERCENT AUTO 9 % (4-13); Mean Corpuscular HGB 28.8 pg (26.0-34.0); Mean Corpuscular HGB Conc 33.6 g/dL (31.5-36.5); Mean Platelet Volume 10.8 fL (9.1-12.4); NEUTROPHILS PERCENT AUTO 72 % (41-73); NRBC ABSOLUTE 0.02 K/mm3 (0.00-0.02); NRBC Auto 0.2 /100 WBC (0.0-0.2); Platelet Count 168 K/mm3 (150-400); RDW Coefficient Variation 14.6 % (11.7-14.2); RDW Standard Deviation 45.1 fL (35.1-46.3); Red Blood Cell Count 2.92 M/mm3 (4.30-5.90); White Blood Cell Count 11.62 K/mm3 (4.00-11.30)
[2019-04-04 22:21] LABS: Mean Corpuscular Volume 86 fL (80-100)
[2019-04-04 22:36] LABS: International Normalized Ratio 1.33
[2019-04-04 22:42] LABS: Magnesium, Blood 1.9 mg/dL (1.6-2.4); Troponin I 0.044 ng/mL (0.000-0.040)
[2019-04-04 22:45] LABS: Alanine Aminotransfer (ALT/SGP 2750 U/L (12-78); Albumin, Blood 2.1 g/dL (3.4-5.0); Alk Phos 65 U/L (50-136); Anion Gap 6 mmol/L (6-16); Aspartate Aminotrans (AST/SGOT 1606 U/L (12-37); Bilirubin, Total 1.8 mg/dL (0.1-1.0); Blood Urea Nitrogen 50 mg/dL (8-24); Bun/Creatinine Ratio 73.7 (12.0-20.0); CO2, Blood 27 mmol/L (21-32); Calcium, Blood 6.9 mg/dL (8.5-10.1); Chloride, Blood 108 mmol/L (98-108); Creatinine, Blood 0.68 mg/dL (0.60-1.20); Globulin, Blood 2.2 g/dL (2.2-4.0); Glomerular Filtration Rate >60 (60-); Glucose, Blood 176 mg/dL (70-99); Potassium, Blood 5.1 mmol/L (3.5-5.5); Prothrombin Time Results 13.7 Sec (9.7-11.5); Sodium, Blood 141 mmol/L (136-145); Total Protein, Blood 4.3 g/dL (6.4-8.2)
--- NOTE | 2019-04-04 22:45 | NUR ---
PT RETURNS FROM OR AT 2150. HAVE BEEN ABLE TO WEAN PT OFF LEVOPHED WELL THE VASOPRESSIN. IS CURRENTLY HYPERTENSIVE. WILL AVOID ANTIHYPERTENSIVES AT THIS TIME SECONDARY TO PREVIOUSLY BEING ON LEVOPHED AND VASOPRESSIN. WILL CONTINUE TO MONITOR. JAGRUTI DRAIN IN PLACE DRAINING SEROUSAINGEOUS DRAINAGE. WOUND VAC OVER MIDLINE INCISION THAT HAD BEEN STAPLED. WOUND VAC SEALED AND REMAINS TO SUCTION. LABS IN PROCESS.
--- NOTE | 2019-04-05 01:03 | NUR ---
CALL MADE EARLIER TO DR ROME WITH UPDATES ON PT'S STATUS WELL LABS VALUES. ORDERS RECEIVED. PT HAS BEEN MEDICATED WITH 25 MCG FENTANYL FOR POST OP PAIN. PT RESTS AND IS ABLE TO TOLERATE ETT WELL. PT RECEIVES FULL BED BATH AND LINEN CHANGE. TOLERATES THIS WELL. PT'S BLOOD PRESSURES HAVE COME DOWN NICELY WITHOUT ANTIHYPERTENSIVES. JAGRUTI DRAIN HAS HAD 405 ML SEROUSAINGEOUS DRAINAGE. WILL CONTINUE TO MONITOR.
[2019-04-05 03:07] LABS: HBSAG SCREEN Negative (Negative); HEP A AB, IGM Negative (Negative); HEP B CORE AB, IGM Negative (Negative); HEP C VIRUS AB <0.1 (0.0-0.9)
[2019-04-05 04:05] LABS: BASOPHILS ABSOLUTE AUTO 0.02 K/mm3 (0.00-0.23); BASOPHILS PERCENT AUTO 0 % (0-2); EOSINOPHILS ABSOLUTE AUTO 0.02 K/mm3 (0.00-0.68); EOSINOPHILS PERCENT AUTO 0 % (0-6); Hematocrit 21.9 % (37.0-53.0); Hemoglobin 7.6 g/dL (13.5-17.5); IMMATURE GRAN ABSOLUTE AUTO 0.09 K/mm3 (0.00-0.10); IMMATURE GRAN PERCENT AUTO 1 % (0-1); LYMPHOCYTES ABSOLUTE AUTO 1.04 K/mm3 (0.84-5.20); LYMPHOCYTES PERCENT AUTO 11 % (21-46); MONOCYTES ABSOLUTE AUTO 1.11 K/mm3 (0.16-1.47); MONOCYTES PERCENT AUTO 11 % (4-13); Mean Corpuscular HGB 29.2 pg (26.0-34.0); Mean Corpuscular HGB Conc 34.7 g/dL (31.5-36.5); Mean Corpuscular Volume 84 fL (80-100); Mean Platelet Volume 10.8 fL (9.1-12.4); NEUTROPHILS PERCENT AUTO 77 % (41-73); NRBC ABSOLUTE 0.02 K/mm3 (0.00-0.02); NRBC Auto 0.2 /100 WBC (0.0-0.2); Platelet Count 158 K/mm3 (150-400); RDW Coefficient Variation 14.7 % (11.7-14.2); RDW Standard Deviation 44.8 fL (35.1-46.3); White Blood Cell Count 9.78 K/mm3 (4.00-11.30)
[2019-04-05 04:21] LABS: International Normalized Ratio 1.3; Prothrombin Time Results 13.5 Sec (9.7-11.5)
[2019-04-05 04:28] LABS: Albumin, Blood 1.9 g/dL (3.4-5.0); Albumin/Globulin Ratio 0.9 (0.8-1.8); Alk Phos 59 U/L (50-136); Anion Gap 5 mmol/L (6-16); Bilirubin, Total 1.5 mg/dL (0.1-1.0); Blood Urea Nitrogen 40 mg/dL (8-24); Bun/Creatinine Ratio 62.7 (12.0-20.0); CO2, Blood 29 mmol/L (21-32); Calcium, Blood 7.3 mg/dL (8.5-10.1); Chloride, Blood 108 mmol/L (98-108); Creatinine, Blood 0.64 mg/dL (0.60-1.20); Globulin, Blood 2.2 g/dL (2.2-4.0); Glomerular Filtration Rate >60 (60-); Glucose, Blood 104 mg/dL (70-99); Potassium, Blood 4.2 mmol/L (3.5-5.5); Sodium, Blood 142 mmol/L (136-145); Total Protein, Blood 4.1 g/dL (6.4-8.2)
[2019-04-05 04:31] LABS: Alanine Aminotransfer (ALT/SGP 2479 U/L (12-78); Aspartate Aminotrans (AST/SGOT 1269 U/L (12-37)
[2019-04-05 05:06] LABS: PCO2 Arterial 41.9 mmHg (35-45); PO2 Arterial 177 mmHg (80-100); pH Blood Arterial 7.43 (7.35-7.45)
--- NOTE | 2019-04-05 06:15 | NUR ---
PT CONTINUES ON VENT WHEREAS FIO2 HAS BEEN TITRATED DOWN TO 50 PERCENT. PT'S TEMP HAS BEEN ELEVATING TO 101.1 REMOVED BLANKETS AND PLACED FAN. WILL CONTINUE TO MONITOR. POISON CONTROL HAS CALLED, UPDATE ON LABS AND VITAL SIGNS GIVEN. RECOMMENDATION IS TO HAVE ANOTHER TYLENOL LEVEL DRAWN DURING THIS MORNING. PT CURRENTLY RECEIVING ONE UNIT PRBC'S AND WILL HAVE H/H DRAWN AT COMPLETION. WILL DO TYLENOL LEVEL AT THAT TIME. HAVE SUCTIONED PT VIA ETT WITH RETURN OF LIGHT YELLOW SECRETIONS. WILL ATTEMPT TO OBTAIN SPUTUM SAMPLE FOR LAB. JAGRUTI DRAINS > 700 ML SEROUSAINGEOUS FLUID. WOUND VAC REMAINS TO SEAL. PT AWAKENS SLIGHTLY WITH TURNS AND ORAL CARE. VERY JAUNDICED IN APPEARANCE. SCLERAL EDEMA NOTED BI LATERAL. LACTIC ACID AT 2.2 THIS AM. SECONDARY TO ELEVATING TEMPERATURE, DID DECREASE PROPOFOL TO 30 MCG'S. PT REMAINS WITH SAS 3-4. WILL CONTINUE TO MONITOR PT, AND WILL REPORT OFF TO ONCOMING RN.
--- NOTE | 2019-04-05 08:13 | NUR ---
PT'S SUICIDE PRECAUTIONS PUT ON HOLD SINCE PT IS CURRENTLY INTUBATED AND SEDATED. WILL REASSESS AND REINSTATE PRECAUTIONS WHEN PT EXTUBATED.
[2019-04-05 08:43] LABS: Hematocrit 22.6 % (37.0-53.0); Hemoglobin 7.9 g/dL (13.5-17.5)
[2019-04-05 09:11] LABS: Acetaminophen, Random 4.7 ug/mL (10.0-30.0); Magnesium, Blood 1.9 mg/dL (1.6-2.4)
--- NOTE | 2019-04-05 09:27 | NUR ---
DR. ROME HERE TO EVALUATE PT. DISCUSSED REPEAT H/H WITH EHR AND SHE GAVE ORDERS TO HOLD OFF ON ORDERING MORE BLOOD AND RECHECK H/H IN [address] ROME GAVE ORDERS FOR IONIZED CA, MG AND PHOS TO BE CHECKED AND REPLACEMENT ORDERED PER PROTOCOL, SEE ORDERS.
[2019-04-05 12:10] LABS: Hematocrit 22.9 % (37.0-53.0)
--- NOTE | 2019-04-05 13:21 | NUR ---
REASSESSMENT: PT'S H/H HAS BEEN STABLE THIS MORNING, NEXT CHECK AT 1830. PT REMAINS INTUBATED AND SEDATED. MOD AMT OF THIN YELLOW SECREITONS, SPUTUM SAMPLE SENT THIS MORNING. LUNGS ARE CLEAR. BP STABLE, SR. PT IS EDEMATOUS, INCREASING IN HIS ARMS. IV FLUIDS STOPPED BY DR. ROME AND LASIX GIVEN. KAYE DRAIN AND HAS BRIGHT RED DRAINAGE AND FEW CLOTS. WOUND VAC REMAINS IN PLACE, NO DRAINAGE IN CHAMBER. PT'S BROTHER CALLED AND WAS GIVEN AN UPDATE. CONTINUING TO MONITOR.
--- NOTE | 2019-04-05 16:30 | NUR ---
SHIFT SUMMARY: PT REMAINED SEDATED AND INTUBATED TODAY. LUNGS ARE CLEAR, DIM IN THE BASES. FIO2 TITRATED DOWN FROM 50% TO 40% TODAY. ABD REMAINS SOFT, MILDLY DISTENDED, RARE BOWEL TONES. DRESSING TO MID ABD C/D/I. KAYE DRAIN CONTINUES TO PUT OUT RED DRAINAGE. GARRIDO WITH CL DARK YELLOW URINE. EXTREMITIES ARE ELEVATED, BUT REMAIN EDEMATOUS. PT'S BROTHER CALLED AGAIN REQUESTING TO SPEAK WITH SECTION WEAVER ABOUT PT'S LIVING CONDITIONS. TRANSFERRED HIM TO HUGO LEA'S PHONE TO SPEAK WITH HER.
[2019-04-05 19:00] LABS: Hematocrit 22.5 % (37.0-53.0); Hemoglobin 7.8 g/dL (13.5-17.5)
--- NOTE | 2019-04-05 20:00 | NUR ---
ASSUMED CARE OF PT AT 1915. REPORT RECEIVED. PT PRESENTS IN BED. VENTED. AC 16, 400 Tv, PEEP 5. PT MAINTAINS > 90 PERCENT WITH FIO2 40 PERCENT. JAGRUTI DRAIN COMPRESSED. MIDLINE DRESSING TO ABDOMEN WITH WOUND VAC TO SEAL. PT IN NO APPARENT DISTRESS. WILL MEDICATE FOR PT WITH ANY INDICATIONS OF POST OP PAIN OR DISCOMFORT. WILL REVIEW CHART AND PLAN OF CARE FOR THIS PT.
--- NOTE | 2019-04-06 | NUR ---
FULL BEDBATH DONE FOR PT. HE TOLERATES THIS WELL. JAGRUTI DRAIN HAS HAD LESS DRAINAGE THIS SHIFT. HAVE EMPTIED 40 ML SEROUSAINGEOUS FLUIDS. NGT TO LIWS WITH MINIMAL OUTPUT. HAVE MEDICATED PT WITH 50 MCG FENTANYL FOR VENT TOLERANCE WELL PROBABLE POST OP AND CHRONIC PAIN. WILL CONTINUE TO MONITOR.
[2019-04-06 00:34] LABS: Hematocrit 21.3 % (37.0-53.0); Hemoglobin 7.3 g/dL (13.5-17.5)
[2019-04-06 04:41] LABS: BASOPHILS ABSOLUTE AUTO 0.03 K/mm3 (0.00-0.23); BASOPHILS PERCENT AUTO 0 % (0-2); EOSINOPHILS ABSOLUTE AUTO 0.12 K/mm3 (0.00-0.68); EOSINOPHILS PERCENT AUTO 1 % (0-6); Hematocrit 21.9 % (37.0-53.0); Hemoglobin 7.6 g/dL (13.5-17.5); IMMATURE GRAN ABSOLUTE AUTO 0.28 K/mm3 (0.00-0.10); IMMATURE GRAN PERCENT AUTO 3 % (0-1); LYMPHOCYTES ABSOLUTE AUTO 1.32 K/mm3 (0.84-5.20); LYMPHOCYTES PERCENT AUTO 15 % (21-46); MONOCYTES PERCENT AUTO 16 % (4-13); Mean Corpuscular HGB 29.2 pg (26.0-34.0); Mean Corpuscular HGB Conc 34.7 g/dL (31.5-36.5); Mean Corpuscular Volume 84 fL (80-100); Mean Platelet Volume 10.8 fL (9.1-12.4); NEUTROPHILS PERCENT AUTO 64 % (41-73); Platelet Count 135 K/mm3 (150-400); RDW Coefficient Variation 15.3 % (11.7-14.2); RDW Standard Deviation 46.8 fL (35.1-46.3); White Blood Cell Count 8.85 K/mm3 (4.00-11.30)
[2019-04-06 05:02] LABS: Albumin, Blood 1.7 g/dL (3.4-5.0); Albumin/Globulin Ratio 0.7 (0.8-1.8); Alk Phos 55 U/L (50-136); Anion Gap 4 mmol/L (6-16); Aspartate Aminotrans (AST/SGOT 322 U/L (12-37); Bilirubin, Total 1.8 mg/dL (0.1-1.0); Blood Urea Nitrogen 23 mg/dL (8-24); Bun/Creatinine Ratio 37.6 (12.0-20.0); CO2, Blood 33 mmol/L (21-32); Calcium, Blood 7.1 mg/dL (8.5-10.1); Chloride, Blood 104 mmol/L (98-108); Creatinine, Blood 0.61 mg/dL (0.60-1.20); Globulin, Blood 2.5 g/dL (2.2-4.0); Glomerular Filtration Rate >60 (60-); Glucose, Blood 125 mg/dL (70-99); Magnesium, Blood 2.2 mg/dL (1.6-2.4); Phosphorus, Blood 2.6 mg/dL (2.5-4.9); Potassium, Blood 3.5 mmol/L (3.5-5.5); Sodium, Blood 141 mmol/L (136-145); Total Protein, Blood 4.2 g/dL (6.4-8.2)
[2019-04-06 05:06] LABS: Alanine Aminotransfer (ALT/SGP 1492 U/L (12-78)
--- NOTE | 2019-04-06 06:17 | NUR ---
PT HAS RESTFUL NIGHT. RIGHT GROIN AND RIGHT RADIAL SITE WITHOUT S/S HEMATOMA OR OOZING. NO COMPLAINTS OF CHEST PAIN. NO FURTHER COMPLAINTS OF INDIGESTION. HAS BEEN UP AND AMBULATE IN UNIT. VSS. NO S/S BRADYCARDIA TO NOTE. WILL CONTINUE TO MONITOR PT, AND WILL REPORT OFF TO ONCOMING RN.
--- NOTE | 2019-04-06 06:27 | NUR ---
CALL MADE TO DR ROME CONCERNING AM LAB OF IONIZED CALCIUM WHICH IS NOT COVERED UNDER ELECTROLYTE PROTOCOL. ORDERS RECEIVED. PT'S HGB HAS REMAINED < 8 ON PAST TWO LAB CHECKS. COVERED BOTH WITH A UNIT OF PACK RED BLOOD CELLS EACH PER STANDING ORDER. PT HAS NO S/S ADVERSE TRANSFUSION REACTIONS. NO ACTIVE S/S REBLEEDING. TOLERATED ANTIBIOTIC THERAPY WELL WITHOUT S/S ADVERSE REACTIONS. PT HAS ALSO HAD LOW GRADE FEVER THROUGHOUT THE NIGHT WITH CURRENT 99.0 WILL CONTINUE TO MONITOR PT, AND WILL REPORT OFF TO ONCOMING RN.
[2019-04-06 10:45] LABS: Hematocrit 26.4 % (37.0-53.0); Hemoglobin 9.1 g/dL (13.5-17.5)
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
--- NOTE | 2019-04-06 16:30 | NUR ---
SEDATION VACATION PROPOFOL PLACED ON STAND BY, PT. BEGAN TO OPEN EYES, LEFT EYE NOTED TO BE RED. DR. NIELSEN NOTIFIED. PT. SHAKING HEAD YES AND NO TO QUESTIONS AND ABLE TO SQUEEZE HANDS TO COMMAND. PT. BEGAN LEANING FORWARD AND REACHING TOWARD TUBE. LEGS RESTLESS, SHAKES HEAD YES TO PAIN. MED FOR PAIN AND SEDATION, PROPOFOL RESTARTED AT 25MCG/KG/MIN. PT VSS. BILAT WRIST RESTRAINTS IN PLACE FOR SAFETY.
--- NOTE | 2019-04-06 17:15 | NUR ---
SHIFT SUMMARY PT. REMAINS SEDATED AND INTUBATED. SHORT SEDATION VACATION TODAY, WHERE PT WAS ABLE TO FOLLOW COMMANDS AND ANSWER YES AND NO QUESTIONS. PT VSS T/O SHIFT. CPN STARTED. REPORT TO ONCOMING RN.
--- NOTE | 2019-04-06 19:30 | NUR ---
ASSUMED CARE PT INTUBATED AT AC16/400/35%/5 AND SEDATED VIA PROPOFOL AT 30MCG/KG/MIN. PT OPENS EYES TO VOICE, FOLLOWS SIMPLE COMMANDS AND NODS YES WHEN ASKED ABOUT QUESTIONS OF PAIN. PT HAS MIDLINE INCISION WITH WOUND VAC IN PLACE, NO DRAINAGE AND A KAYE DRAIN WITH SEROSANGUINEOUS DRAINAGE. NO BM PER DAY SHIFT. NG TO LIS WITH BILE COLORED DRAINAGE. CPN AT 75ML/HR, NAC AT 65ML/HR AND NS TKO. VSS, ECG SHOWS SR AND O2 SATS 95-97% ON PREVIOUSLY NOTED VENT SETTINGS.
--- NOTE | 2019-04-06 20:14 | NUR ---
DR FRANCE HERE UPDATED ON PT, NO BLOOD PER RECTUM, BLOOD LOSS ONLY NOTED THROUGH JAGRUTI. VERIFIED TO TRANSFUSE IF HGB <8 AND PLAN FOR SBT IN AM. NO NEW ORDERS AT THIS TIME.
[2019-04-07 03:54] LABS: BASOPHILS ABSOLUTE AUTO 0.03 K/mm3 (0.00-0.23); BASOPHILS PERCENT AUTO 0 % (0-2); EOSINOPHILS ABSOLUTE AUTO 0.21 K/mm3 (0.00-0.68); EOSINOPHILS PERCENT AUTO 3 % (0-6); Hematocrit 24.3 % (37.0-53.0); Hemoglobin 8.3 g/dL (13.5-17.5); IMMATURE GRAN ABSOLUTE AUTO 0.32 K/mm3 (0.00-0.10); IMMATURE GRAN PERCENT AUTO 4 % (0-1); LYMPHOCYTES ABSOLUTE AUTO 1.14 K/mm3 (0.84-5.20); LYMPHOCYTES PERCENT AUTO 16 % (21-46); MONOCYTES ABSOLUTE AUTO 1.06 K/mm3 (0.16-1.47); MONOCYTES PERCENT AUTO 15 % (4-13); Mean Corpuscular HGB 29.3 pg (26.0-34.0); Mean Corpuscular HGB Conc 34.2 g/dL (31.5-36.5); Mean Corpuscular Volume 86 fL (80-100); Mean Platelet Volume 10.8 fL (9.1-12.4); NEUTROPHILS ABSOLUTE AUTO 4.46 K/mm3 (1.96-9.15); NEUTROPHILS PERCENT AUTO 62 % (41-73); Platelet Count 132 K/mm3 (150-400); RDW Coefficient Variation 15.1 % (11.7-14.2); RDW Standard Deviation 46.6 fL (35.1-46.3); Red Blood Cell Count 2.83 M/mm3 (4.30-5.90); White Blood Cell Count 7.22 K/mm3 (4.00-11.30)
[2019-04-07 04:09] LABS: International Normalized Ratio 1.1; Prothrombin Time Results 11.6 Sec (9.7-11.5)
[2019-04-07 04:16] LABS: Acetaminophen, Random 3.5 ug/mL (10.0-30.0); Magnesium, Blood 2.2 mg/dL (1.6-2.4)
[2019-04-07 04:17] LABS: Alanine Aminotransfer (ALT/SGP 970 U/L (12-78); Albumin, Blood 1.7 g/dL (3.4-5.0); Albumin/Globulin Ratio 0.6 (0.8-1.8); Alk Phos 60 U/L (50-136); Anion Gap 5 mmol/L (6-16); Aspartate Aminotrans (AST/SGOT 112 U/L (12-37); Bilirubin, Total 0.6 mg/dL (0.1-1.0); Blood Urea Nitrogen 15 mg/dL (8-24); Bun/Creatinine Ratio 29.9 (12.0-20.0); CO2, Blood 35 mmol/L (21-32); Calcium, Blood 7.5 mg/dL (8.5-10.1); Chloride, Blood 101 mmol/L (98-108); Globulin, Blood 2.8 g/dL (2.2-4.0); Glomerular Filtration Rate >60 (60-); Glucose, Blood 163 mg/dL (70-99); Phosphorus, Blood 2.3 mg/dL (2.5-4.9); Potassium, Blood 3.5 mmol/L (3.5-5.5); Sodium, Blood 141 mmol/L (136-145); Total Protein, Blood 4.5 g/dL (6.4-8.2); Triglycerides 123 mg/dL (30-160)
[2019-04-07 04:44] LABS: Base Excess Venous 12.7 mmol/L; Bicarbonate Venous 35.1 mmol/L (24.0-30.0); PCO2 Venous 46.8 mmHg (38-42); PO2 Venous 58.3 mmHg (38-42); pH Blood Venous 7.49 (7.34-7.37)
--- NOTE | 2019-04-07 06:36 | NUR ---
SHIFT SUMMARY PT REMAINS INTUBATED, NO CHANGE TO PREVIOUSLY NOTED VENT SETTINGS. SBT COMPLETED THIS AM, TOOK PT 25-30 MINUTES TO WAKE UP ENOUGH TO PARTICIPATE. ONE AWAKE, ALBE TO FOLLOW COMMANDS AND NOD HEAD YES/NO. DURING SBT PT TOLERATED WELL, RR <30, VSS, GOOD VT'S. PROPOFOL RESUMED AT 25MCG/KG/MIN AND PT MEDICATED AFTER INDICATING PAIN. KAYE DRAIN OUTPUT AT 180ML FOR SHIFT, NOTING FROM WOUND VAC. NO BM BUT PT IS PASSING FLATUS. UOP AT 1700ML AND IS DARK. NAC CONTINUES PER POISON CONTROL RECOMMENDATION AT 65ML/HR, CPN AT 75ML/HR AND KPHOS INFUSING PER ELECTROLYTE PROTOCOL.
--- NOTE | 2019-04-07 11:53 | NUR ---
DR. NIELSEN AT BEDSIDE DOING ROUNDS AND REQUESTED ANOTHER WEANING TRIAL. PROPOFOL TURNED OFF AT [address] NIELSEN SWITCHED PT TO SPONTANEOUS MODE ON THE VENT SHORTLY AFTER BECAUSE HE WAS ALREADY AWAKE AND RESPONDING. PT DID WELL ON WEANING AND DR. NIELSEN GAVE ORDERS TO EXTUBATE. PT EXTUBATED AT 1110. PLACED ON 3L AND 94%. PT IS DROWSY, BUT ORIENTED. PT IS VERY CONCERNED ABOUT HIS DOG, UNABLE TO REACH HIS BROTHER, BUT WILL KEEP TRYING TO MAKE SURE PT'S DOG IS BEING CHECKED ON. SINCE PT IS EXTUBATED, SUICIDE RISK REASSESSED, ROOM REMEDIATION DONE AND CAMERA BACK ON IN THE ROOM.
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
--- NOTE | 2019-04-07 19:30 | NUR ---
ASSUMED CARE PT JUST RETURNED TO BED AFTER SITTING UP IN CHAIR. PT EXTUBATED TODAY AND DOING WELL, O2 SATS 96% ON RA. PT WORRIED ABOUT HIS DOG, ASSISTED WITH PHONE CALL TO BROTHER SMILEY-MESSAGE LEFT. PER AM RN, CAMERA ON POST EXTUBATION AND [address] IN PL[address]. PT CONCERNED ABOUT CHRONIC BACK PAIN, DOES NOT COMPLAIN ABOUT ABD PAIN UNDLES MOVING. MIDLINE INCISION TO WOUND VAC WITH DRESSING IN PLACE AND NO DRAINAGE ALONG WITH JAGRUTI TO RLQ WITH BLOOD TINGED FLUID IN BULB. CPN CONTINUES AT 75ML/HR, PLAN TO MAINTAIN NPO STATUS, NAC AT 65ML/HR UNTIL TYLENOL LEVEL <2 PER POISON CONTROL AND NS TKO. VSS, ECG SHOWS SR.
--- NOTE | 2019-04-08 02:23 | NUR ---
UPDATE WHEN AWAKE, PT REQUESTS PAIN MEDS BUT HAS BEEN ABLE TO SLEEP FOR MAJORITY OF SHIFT SO FAR. PT REPORTS BACK PAIN IS WORSE THAN ABD PAIN. LIDOCAINE PATCHES APPLIED, HEAT/COLD OFFERED AND REFUSED, PT REPOSITINED AND IS AGAIN SLEEPING. PT PASSING FLATUS AND BURPING, REPORTS OCCASIONAL NAUSEA BUT HAS HAD NO EMEMSIS OR STOOL THIS SHIFT.
[2019-04-08 04:23] LABS: Hematocrit 25.4 % (37.0-53.0); Hemoglobin 8.5 g/dL (13.5-17.5); Mean Corpuscular HGB 28.6 pg (26.0-34.0); Mean Corpuscular HGB Conc 33.5 g/dL (31.5-36.5); Mean Corpuscular Volume 86 fL (80-100); Mean Platelet Volume 10.4 fL (9.1-12.4); Platelet Count 157 K/mm3 (150-400); RDW Coefficient Variation 15.2 % (11.7-14.2); RDW Standard Deviation 45.2 fL (35.1-46.3); Red Blood Cell Count 2.97 M/mm3 (4.30-5.90); White Blood Cell Count 6.68 K/mm3 (4.00-11.30)
[2019-04-08 04:39] LABS: International Normalized Ratio 1.1; Prothrombin Time Results 11.6 Sec (9.7-11.5)
[2019-04-08 04:43] LABS: BAND PERCENT MAN 3 % (0-8); BASOPHILS PERCENT MAN 0 % (0-2); EOSINOPHILS ABSOLUTE MAN 0.33 K/mm3 (0.00-0.68); EOSINOPHILS PERCENT MAN 5 % (0-6); LYMPHOCYTES ABSOLUTE MAN 0.73 K/mm3 (0.84-5.20); LYMPHOCYTES PERCENT MAN 11 % (21-46); METAMYELOCYTE ABSOLUTE MAN 0.06 K/mm3 (0.00-0.00); METAMYELOCYTE PERCENT MAN 1 % (0-0); MONOCYTES ABSOLUTE MAN 1.13 K/mm3 (0.16-1.47); MONOCYTES PERCENT MAN 17 % (4-13); MYELOCYTE PERCENT MAN 3 % (0-0); SEG NEUTROPHILS PERCENT MAN 60 % (41-73); TOTAL CELLS COUNTED 100
[2019-04-08 04:46] LABS: Alanine Aminotransfer (ALT/SGP 629 U/L (12-78); Albumin, Blood 1.7 g/dL (3.4-5.0); Albumin/Globulin Ratio 0.6 (0.8-1.8); Alk Phos 66 U/L (50-136); Anion Gap 6 mmol/L (6-16); Aspartate Aminotrans (AST/SGOT 45 U/L (12-37); Bilirubin, Total 0.7 mg/dL (0.1-1.0); Blood Urea Nitrogen 14 mg/dL (8-24); Bun/Creatinine Ratio 28.6 (12.0-20.0); CO2, Blood 34 mmol/L (21-32); Calcium, Blood 7.9 mg/dL (8.5-10.1); Chloride, Blood 103 mmol/L (98-108); Creatinine, Blood 0.49 mg/dL (0.60-1.20); Globulin, Blood 2.8 g/dL (2.2-4.0); Glomerular Filtration Rate >60 (60-); Glucose, Blood 149 mg/dL (70-99); Magnesium, Blood 2.1 mg/dL (1.6-2.4); Phosphorus, Blood 2.8 mg/dL (2.5-4.9); Potassium, Blood 3.4 mmol/L (3.5-5.5); Sodium, Blood 143 mmol/L (136-145); Total Protein, Blood 4.5 g/dL (6.4-8.2)
[2019-04-08 04:48] LABS: Acetaminophen, Random 2.2 ug/mL (10.0-30.0)
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
--- NOTE | 2019-04-08 10:36 | NUR ---
DR. DUDLEY HERE AND GAVE OK TO TRY GRAPE JUICE TO SEE IF PT'S DRAIN OUTPUT CHANGES COLOR. POISON CONTROL CALLED AND GAVE OK TO STOP NAC AFTER HEARING PT'S LAB VALUES. DR. NIELSEN INFORMED OF THIS. SHE SAW PT AND GAVE OK FOR PT TO TRANSFER TO SURGICAL FLOOR.
--- NOTE | 2019-04-08 12:28 | NUR ---
TRANSFER: PT TRANSFERRED TO SURGICAL FLOOR 224. REPORT GIVEN TO HUGO KENT. PT TRANSPORTED VIA AND ALL BELONGINGS TRANSFERRED WITH HIM. PT HAD NO CHANGE IN COLOR OF DRAIN OUTPUT BEFORE TRANSFER.
--- NOTE | 2019-04-08 12:28 | NUR ---
PT TO ROOM 224. PT A/O. PT DENIES S/I AT THIS TIME. PT REPORTS CHRONIC PAIN. PT REPORTS NAUSEA AT TIMES. PT REPORTS NOT VOIDING YET AFTER HAVING CATHETER OUT. PT REPORTS PASSING GAS. PT HAS PRAVENA IN PLACE TO ABD THAT APPEARS WNL. PT HAS JAGRUTI IN PLACE. PT ON CAMERA FOR SUICIDE PRECAUTIONS. ROOM WAS SET UP FOR SUICIDE PRECAUTIONS WITH ASSIST FROM HYDROLOGICAL TECHNICAL OFFICER. BELONGINGS LOCKED IN CUPBOARD.
--- NOTE | 2019-04-08 19:18 | NUR ---
SHIFT SUMMARY PT TRANSFER TO 224 TODAY FROM ICU. PT BEEN ASSISTED WITH ADL'S PRN. PT BEEN UP WITH ASSIST TO BATHROOM WITH RN PT IS ON SUICIDAL PRECAUTIONS. PT REPORTING THAT HE DOES NOT HAVE SUICIDAL IDEATION AT THIS TIME. PT ALSO BEING MONITORED BY CAMERA WHICH WAS VERIFIED BY GRADUATE ASSISTANT ATHLETIC TRAINER. PT BATHROOM BEEN LOCKED WHEN NOT IN USE. SUICIDAL PRECAUTIONS BEEN IN PLACE INCLUDING HAVING SHORT CALL LIGHT. PT VOIDING AFTER HAVING CATHETER DC'D IN ICU. BEDSIDE REPORT BEEN GIVEN TO HS RN.
--- NOTE | 2019-04-08 22:21 | NUR ---
PATIENT IS HAVING ACUTE PAIN IN HIS ABDOMEN, iv FENTANYL IS WORING FOR APPROXIMATELY 2 HOURS. MID ABDOMINAL WOUND VAC DRESSING IS DRY WITHOUT ANY DRAINAGE. JAGRUTI DRAIN TO THE RT LOWER QUADANT WITH SS DRAINAGE. PATIENT IS CURRENTLY NOT THINKING ABOUT HARMING SELF. PATIENT IS VISUALIZED IN THE MONITOR ROOM, VISUALIZATION CONFIRMED.
[2019-04-09 04:53] LABS: Hematocrit 27.3 % (37.0-53.0); Hemoglobin 8.9 g/dL (13.5-17.5); Mean Corpuscular HGB 28.9 pg (26.0-34.0); Mean Corpuscular HGB Conc 32.6 g/dL (31.5-36.5); Mean Platelet Volume 10.4 fL (9.1-12.4); Platelet Count 184 K/mm3 (150-400); RDW Coefficient Variation 15.1 % (11.7-14.2); RDW Standard Deviation 47.7 fL (35.1-46.3); Red Blood Cell Count 3.08 M/mm3 (4.30-5.90)
[2019-04-09 04:54] LABS: Mean Corpuscular Volume 89 fL (80-100)
--- NOTE | 2019-04-09 05:02 | NUR ---
NO ACUTE CHANGES. PATIENT IS CALM, AND APPROPRIATE. LESS ACUTE PAIN THAN AT THE BEGINNING OF THE SHIFT. Janna CONTINUES TO DRAIN SS FLUID. MIDLINE WOUND VAC DRESSING IS CLEAR AND DRY, NO DRAINAGE IN THE TUBING. PATIENT HAS BEEN VOIDING PER URINAL. CALL LIGHT IS WITHIN REACH.
[2019-04-09 05:10] LABS: International Normalized Ratio 1.13; Prothrombin Time Results 11.8 Sec (9.7-11.5)
[2019-04-09 05:13] LABS: Alanine Aminotransfer (ALT/SGP 458 U/L (12-78); Albumin/Globulin Ratio 0.7 (0.8-1.8); Alk Phos 78 U/L (50-136); Anion Gap 6 mmol/L (6-16); Aspartate Aminotrans (AST/SGOT 37 U/L (12-37); Bilirubin, Total 0.6 mg/dL (0.1-1.0); Blood Urea Nitrogen 21 mg/dL (8-24); Bun/Creatinine Ratio 39.5 (12.0-20.0); CO2, Blood 31 mmol/L (21-32); Calcium, Blood 7.9 mg/dL (8.5-10.1); Chloride, Blood 104 mmol/L (98-108); Creatinine, Blood 0.53 mg/dL (0.60-1.20); Glomerular Filtration Rate >60 (60-); Glucose, Blood 145 mg/dL (70-99); Magnesium, Blood 2.1 mg/dL (1.6-2.4); Phosphorus, Blood 3.2 mg/dL (2.5-4.9); Potassium, Blood 3.9 mmol/L (3.5-5.5); Sodium, Blood 141 mmol/L (136-145)
[2019-04-09 05:25] LABS: BAND PERCENT MAN 3 % (0-8); BASOPHILS PERCENT MAN 0 % (0-2); EOSINOPHILS ABSOLUTE MAN 0.34 K/mm3 (0.00-0.68); EOSINOPHILS PERCENT MAN 5 % (0-6); LYMPHOCYTES ABSOLUTE MAN 1.36 K/mm3 (0.84-5.20); LYMPHOCYTES PERCENT MAN 20 % (21-46); METAMYELOCYTE ABSOLUTE MAN 0.13 K/mm3 (0.00-0.00); METAMYELOCYTE PERCENT MAN 2 % (0-0); MONOCYTES ABSOLUTE MAN 0.68 K/mm3 (0.16-1.47); MONOCYTES PERCENT MAN 10 % (4-13); NEUTROPHILS ABSOLUTE MAN 4.28 K/mm3 (1.96-9.15); SEG NEUTROPHILS PERCENT MAN 60 % (41-73); TOTAL CELLS COUNTED 100
--- NOTE | 2019-04-09 10:33 | NUR ---
SUICIDE RISK PRECAUTIONS DISCONTINUED PER DR. CLEMENT
--- NOTE | 2019-04-09 15:33 | NUR ---
DR. SEGUNDO IN TO SEE PT, ADVANCED DIET TO FULL LIQUID NOW. PLAN IS TO POSSIBLY DC TPN TOMORROW
--- NOTE | 2019-04-09 16:00 | NUR ---
SUMMARY: PT IS POD1 OPEN COLECTOMY. A/O, VSS. PT IS PASSING GAS AND HAD 2 LIQUID BM'S WITH OLD BLOOD PRESENT. NO ACTIVE BLEED ASSESSED. PT TOLERATED CLEAR LIQUID DIET FOR LUNCH. SURGICAL SITE WNL. JAGRUTI DRAINED X2. PT GIVEN 50-100MCG FOR PAIN, PT ABLE TO REST AND COMPLETE PHYSICAL THERAPY, ALTHOUGH RATES PAIN NO LOWER THAN 5 CONSISTANTLY. PT HAS HX OF CHRONIC BACK PAIN ASWELL. SPOKE WITH DR. CLEMENT CONCERNING PT PAIN, PLAN IS TO CONTINUE SAME INTERVENTIONS WITH IV FENTAYAL. INTERMITTANT NAUSEA TODAY, PT STATES HAVING SOME LIQUIDS ON HIS STOMACH HAS HELPED NAUSEA SUBSIDE. PLAN IS FOR POSSIBLE DC OF TPN TOMORROW/CONTINUE PAIN MANAGEMENT. NO ACUTE SAFETY CONCERNS AT THIS TIME.
[2019-04-10 04:31] LABS: BASOPHILS ABSOLUTE AUTO 0.04 K/mm3 (0.00-0.23); BASOPHILS PERCENT AUTO 1 % (0-2); EOSINOPHILS ABSOLUTE AUTO 0.33 K/mm3 (0.00-0.68); EOSINOPHILS PERCENT AUTO 4 % (0-6); Hematocrit 29.1 % (37.0-53.0); Hemoglobin 9.4 g/dL (13.5-17.5); IMMATURE GRAN ABSOLUTE AUTO 0.49 K/mm3 (0.00-0.10); IMMATURE GRAN PERCENT AUTO 6 % (0-1); LYMPHOCYTES ABSOLUTE AUTO 1.63 K/mm3 (0.84-5.20); LYMPHOCYTES PERCENT AUTO 19 % (21-46); MONOCYTES ABSOLUTE AUTO 0.97 K/mm3 (0.16-1.47); MONOCYTES PERCENT AUTO 12 % (4-13); Mean Corpuscular HGB 28.7 pg (26.0-34.0); Mean Corpuscular HGB Conc 32.3 g/dL (31.5-36.5); Mean Corpuscular Volume 89 fL (80-100); Mean Platelet Volume 10.3 fL (9.1-12.4); NEUTROPHILS ABSOLUTE AUTO 4.94 K/mm3 (1.96-9.15); NEUTROPHILS PERCENT AUTO 59 % (41-73); Platelet Count 218 K/mm3 (150-400); RDW Coefficient Variation 15.1 % (11.7-14.2); RDW Standard Deviation 48.2 fL (35.1-46.3); Red Blood Cell Count 3.28 M/mm3 (4.30-5.90)
[2019-04-10 04:49] LABS: Alanine Aminotransfer (ALT/SGP 341 U/L (12-78); Albumin, Blood 2.1 g/dL (3.4-5.0); Albumin/Globulin Ratio 0.7 (0.8-1.8); Alk Phos 87 U/L (50-136); Anion Gap 5 mmol/L (6-16); Aspartate Aminotrans (AST/SGOT 38 U/L (12-37); Bilirubin, Total 0.5 mg/dL (0.1-1.0); Blood Urea Nitrogen 17 mg/dL (8-24); Bun/Creatinine Ratio 36.2 (12.0-20.0); CO2, Blood 30 mmol/L (21-32); Calcium, Blood 8.1 mg/dL (8.5-10.1); Chloride, Blood 106 mmol/L (98-108); Creatinine, Blood 0.47 mg/dL (0.60-1.20); Globulin, Blood 3.2 g/dL (2.2-4.0); Glomerular Filtration Rate >60 (60-); Glucose, Blood 146 mg/dL (70-99); Potassium, Blood 4.5 mmol/L (3.5-5.5); Sodium, Blood 141 mmol/L (136-145); Total Protein, Blood 5.3 g/dL (6.4-8.2)
[2019-04-10 04:51] LABS: BAND PERCENT MAN 2 % (0-8); BASOPHILS PERCENT MAN 0 % (0-2); EOSINOPHILS ABSOLUTE MAN 0.42 K/mm3 (0.00-0.68); EOSINOPHILS PERCENT MAN 5 % (0-6); LYMPHOCYTES ABSOLUTE MAN 1.34 K/mm3 (0.84-5.20); LYMPHOCYTES PERCENT MAN 16 % (21-46); METAMYELOCYTE ABSOLUTE MAN 0.16 K/mm3 (0.00-0.00); METAMYELOCYTE PERCENT MAN 2 % (0-0); MONOCYTES ABSOLUTE MAN 0.75 K/mm3 (0.16-1.47); MONOCYTES PERCENT MAN 9 % (4-13); NEUTROPHILS ABSOLUTE MAN 5.71 K/mm3 (1.96-9.15); SEG NEUTROPHILS PERCENT MAN 66 % (41-73); TOTAL CELLS COUNTED 100
--- NOTE | 2019-04-10 07:11 | NUR ---
SUMMARY PT REPORTED SLEPT WELL LAST NIGHT. REQUIRIING SUBLIMAZE FOR BACK PAIN. TOLERATING PO.
--- NOTE | 2019-04-10 17:12 | NUR ---
SUMMARY NO ACUTE CHANGES T/O SHIFT. ATTEMPTED TO CHANGE PT'S PAIN CONTROL TO FENTANYL PATCH. PT WAS NOT SATISFIED W/PAIN CONTROL ON PATCH WHICH WAS DC'D PER DR CLEMENT AND PT WAS RESTARTED ON IV FENTANYL. MEDICATED PT PER ORDERS DURING SHIFT FOR BACK AND ABDOMINAL PAIN. JAGRUTI DRAINING SS FLUID. PT REFUSED TO GET UP W/THERAPY BUT GOT OUT OF BED AND AMBULATED IN ROOM AND SAT IN CHAIR WHILE CONTROL ELECTRICIAN WAS IN ROOM.
[2019-04-11 04:44] LABS: BASOPHILS ABSOLUTE AUTO 0.04 K/mm3 (0.00-0.23); BASOPHILS PERCENT AUTO 0 % (0-2); EOSINOPHILS ABSOLUTE AUTO 0.27 K/mm3 (0.00-0.68); EOSINOPHILS PERCENT AUTO 3 % (0-6); Hematocrit 30.6 % (37.0-53.0); IMMATURE GRAN ABSOLUTE AUTO 0.34 K/mm3 (0.00-0.10); IMMATURE GRAN PERCENT AUTO 4 % (0-1); LYMPHOCYTES ABSOLUTE AUTO 1.87 K/mm3 (0.84-5.20); LYMPHOCYTES PERCENT AUTO 21 % (21-46); MONOCYTES ABSOLUTE AUTO 0.88 K/mm3 (0.16-1.47); MONOCYTES PERCENT AUTO 10 % (4-13); Mean Corpuscular HGB Conc 32.7 g/dL (31.5-36.5); Mean Corpuscular Volume 89 fL (80-100); Mean Platelet Volume 10.6 fL (9.1-12.4); NEUTROPHILS ABSOLUTE AUTO 5.73 K/mm3 (1.96-9.15); NEUTROPHILS PERCENT AUTO 63 % (41-73); Platelet Count 250 K/mm3 (150-400); RDW Coefficient Variation 15.3 % (11.7-14.2); RDW Standard Deviation 48.3 fL (35.1-46.3); Red Blood Cell Count 3.45 M/mm3 (4.30-5.90); White Blood Cell Count 9.13 K/mm3 (4.00-11.30)
[2019-04-11 05:01] LABS: Albumin, Blood 2.4 g/dL (3.4-5.0); Albumin/Globulin Ratio 0.7 (0.8-1.8); Bilirubin, Direct 0.4 mg/dL (0.0-0.3); Bilirubin, Indirect 0.4 mg/dL (0.1-0.7); Bilirubin, Total 0.8 mg/dL (0.1-1.0); Globulin, Blood 3.3 g/dL (2.2-4.0); Total Protein, Blood 5.7 g/dL (6.4-8.2)
--- NOTE | 2019-04-11 06:33 | NUR ---
POD 7 S/P DUODENAL ULCER OVERSEW. PT VSS T/O NIGHT; DRESSING CDI. JAGRUTI PUTTING OUT SS DRNG. PT MIESHA REG PO, REP +FLATUS, IS VOIDING URINE W/O DIFFICULTY. PT CONT TO BE VERY ANXIOUS R/T OUT PT PAIN MGMT. PT EDUCATED ON CURRENT PRN ORDERS, WELL RISKS R/T NSAIDS AND TYLENOL W/CURRENT STATE OF HEALTH. PT RECEPTIVE TO INFO, BUT CONT TO VERBALIZE CONCNERS R/T NEED FOR NARCOTIC PAIN MEDS FOR CHRONIC BACK PAIN MGMT. PT USING CALL LIGHT FOR ASSISTANCE, WILL CONT TO MONITOR UNTIL REP GIVEN TO ONCOMING RN.
--- NOTE | 2019-04-11 08:01 | NUR ---
PATIENT STATES HE GOT NO SLEEP LAST NITE AND WANTS LEFT ALONE TODAY TO SLEEP. PATIENT TELLS ME HE HAS A PLAN WORKED OUT TO GO HOME AND DOES NOT WANT TO SEE VEHICLE SERVICE ATTENDANT OR ANY PT/OT TODAY. PATIENT TELLS ME HE WILL REQUEST 100 MCG FENTANYL PATCHES FROM HOSPITALIST
--- NOTE | 2019-04-11 10:25 | NUR ---
ISTRATE IN TO SEE PATIENT. PATIENT REQUEST PAIN REFERRAL TO [facility]. SPOKE WITH FELISA AT THIS OFFICE AND PATIENT RECORDS AND REFERRAL FAXED TO THEM AT [phone]. THIS GENTLEMAN IS A CURRENT PATIENT AT [facility] AND WAS SEEN BY THEM APPROX. 2 WEEKS AGO. [facility] IS TO RETURN MY CALL SO I CAN VERIFY IF THEY HAVE PREVIOUSLY REFERRED PATIENT TO [facility].
--- NOTE | 2019-04-11 10:59 | NUR ---
PCP APPT VERIFIED THAT PATIENT HAS FOLLOW UP APPT 04/12/29 AT 0800 WITH VIVIAN CARRANZA
--- NOTE | 2019-04-11 11:07 | NUR ---
RECEIVED CALL FROM GABY AT [facility]. PATIENT HAS BEEN SEEN BY THEM AND NEEDS IMAGING DONE PRIOR TO FOLLOW UP CARE BEING SCHEDULED.
--- NOTE | 2019-04-11 14:36 | NUR ---
patient multiple calls wishing to discuss his discharge pain meds. discussed with patient that physician will be the one to decide discharge meds. discussed with patient that he will be transported to his pcp appointment tomorrow morning and should discuss meds with pcp.
--- NOTE | 2019-04-11 15:00 | NUR ---
received faxed medical records from [facility]. medical records faxed to edie ibanez
--- NOTE | 2019-04-11 15:17 | NUR ---
received phone call from patients brother,Indio Watts. Informed Indio that patient has requested that we do not speak with him. Indio angry- phoned back two more times to request information. No information was given to Indio Patient spoke with Iza Ramirez RN who also told Indio that we cannot provide any information. Spoke with patient and patient angry- speaking in raised voice and states I should not allow his brother to call here. Patient states he wishes to revoke the consent for verbal consent of information. patient reqests he be listed as confidential, notified admitting. Patient states that his brother is not his POA.
--- NOTE | 2019-04-11 17:15 | NUR ---
DR SEGUNDO HERE TO SEE PATIENT. JAGRUTI PRITCHETT AND STERI STRIPS APPLIED TO SITE. PREVENA REMOVED. DAWN INTACT. NO DRAINAGE, REDNESS OR BRUISING AT SURGICAL SITE
[2019-04-11] MEDS ORDERED: Ciloxan5 ML LEFTEYE (17:26)
[2019-04-11] MEDS ORDERED: HYDR10 PO (17:27)
[2019-04-11] MEDS ORDERED: LIDO700A20 TOP (17:29)
[2019-04-11] MEDS ORDERED: ONDA4ODT MM (17:31)
[2019-04-11] MEDS ORDERED: PANT40 PO (17:31)
[2019-04-11] MEDS ORDERED: Florastor250 MG PO (17:32)
--- NOTE | 2019-04-11 17:50 | NUR ---
SUMMARY PATIENT ANGRY AT TIMES REGARDING PLAN TO DISCHARGE IN AM AND FOLLOW UP WITH PCP FOR PAIN MEDICATIONS. PATIENT IS AWARE THAT PLAN WILL BE TO DISCHARGE VIA TAXI AT 0730 IN THE MORNING FOR FOLLOW UP APPT WITH VIVIAN OVALLE PCP. PATIENT DENIES ANY SI, STATES HE HAS NEVER WANTED TO , THAT HE JUST WANTS HIS CHRONIC BACK PAIN CONTROLLED. PATIENT IS LISTED CONFIDENTIAL PER HIS REQUEST
--- NOTE | 2019-04-12 07:26 | NUR ---
DISCHARGE PT DISCHARGED HOME FROM UNIT AT APROX 0726. PT GIVEN WRITTEN AND VERBAL DISCHARGE INSTRUCTIONS IN ADDITION TO A RELEASE FOR MEDICAL RECORDS PER PATIENT REQUEST. PT VERBALIZED UNDERSTANDING OF THESE INSTUCTIONS BUT REFUSED TO SIGN DISCHARGE SO 2ND RN DESIRE TO PT ROOM TO WITNESS THAT PT RECIEVED INSTUCTIONS AND UNDERSTOOD WITH NO FURTHER QUESTIONS. DISCHARGE INSTUCTIONS REVIEWED FOR A 2ND TIME. WHEELCHAIR TO FRONT OF BUILDING TO MEET TAXI FOR PTS 0800 APT WITH VIVIAN CARRANZA.
--- NOTE | 2019-04-12 07:39 | NUR ---
pt refused to sign discharge teaching/packet. see full charge bookkeeperHUGO Couch note. PICC line removed by full charge bookkeeper WNL, pt provided with scrub top per request. pt escorted to awaiting cab for transfer to PCP appointment at 0800 via wheelchair by HUGO Hwang with belongings carried by pt
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
== END 2019-04-12 07:36 | disposition home or self-care (01) | DRG 907 ==
LOC: ER 03:22 → EOR 03:23 → ERHOLD 03:23 → ER 03:23 → ICUE 05:58 → ERHOLD 05:58 → SURS 05:58 → MEDS 05:58 → ICUE 08:23 → MEDS 04-03 18:15 → ICUE 04-04 07:44 → SURS 04-08 12:43
PROVIDERS: Emergency Medicine; Family Medicine; Internal Medicine; Internal Medicine Critical Care Medicine; Internal Medicine Pulmonary Disease; ADMIT Internal Medicine
PROC: 0XQHXZZ Repair Left Wrist Region, External Approach (ICD-10-PCS; principal; 2019-04-02)
PROC: 0DQ98ZZ Repair Duodenum, Via Natural or Artificial Opening Endoscopic (ICD-10-PCS; 2019-04-04)
PROC: 02HV33Z Insertion of Infusion Device into Superior Vena Cava, Percutaneous Approach (ICD-10-PCS; 2019-04-04)
PROC: 30233N1 Transfusion of Nonautologous Red Blood Cells into Peripheral Vein, Percutaneous Approach (ICD-10-PCS; 2019-04-04)
PROC: 3E033XZ Introduction of Vasopressor into Peripheral Vein, Percutaneous Approach (ICD-10-PCS; 2019-04-04)
PROC: 0BH18EZ Insertion of Endotracheal Airway into Trachea, Via Natural or Artificial Opening Endoscopic (ICD-10-PCS; 2019-04-04)
PROC: 5A1945Z Respiratory Ventilation, 24-96 Consecutive Hours (ICD-10-PCS; 2019-04-04)
PROC: 30233K1 Transfusion of Nonautologous Frozen Plasma into Peripheral Vein, Percutaneous Approach (ICD-10-PCS; 2019-04-05)
PROC: 30233R1 Transfusion of Nonautologous Platelets into Peripheral Vein, Percutaneous Approach (ICD-10-PCS; 2019-04-05)
DX: T39.311A Poisoning by propionic acid derivatives, accidental (unintentional), initial encounter (principal); R57.8 Other shock; K27.4 Chronic or unspecified peptic ulcer, site unspecified, with hemorrhage; J96.00 Acute respiratory failure, unspecified whether with hypoxia or hypercapnia; B17.9 Acute viral hepatitis, unspecified; D62 Acute posthemorrhagic anemia; K22.10 Ulcer of esophagus without bleeding; S61.512A Laceration without foreign body of left wrist, initial encounter; T14.91XA Suicide attempt, initial encounter; G89.29 Other chronic pain; M54.5 Low back pain; I10 Essential (primary) hypertension; K59.00 Constipation, unspecified; F43.21 Adjustment disorder with depressed mood; E87.6 Hypokalemia; I95.9 Hypotension, unspecified; K44.9 Diaphragmatic hernia without obstruction or gangrene; E83.51 Hypocalcemia; E83.39 Other disorders of phosphorus metabolism; H10.9 Unspecified conjunctivitis; T39.1X1A Poisoning by 4-Aminophenol derivatives, accidental (unintentional), initial encounter; Y90.0 Blood alcohol level of less than 20 mg/100 ml; Y92.9 Unspecified place or not applicable
CPT/HCPCS: 12001; 31500; 31720; 36415; 36430; 36569; 36600; 51702; 71045; 74018; 76700; 80053; 80074; 80076; 81001; 82140; 82330; 82803; 82947; 83605; 83735; 83880; 84100; 84132; 84439; 84443; 84478; 84484; 85014; 85018; 85025; 85027; 85384; 85610; 85730; 86850; 86900; 86901; 86923; 87040; 87070; 87077; 87086; 87186; 87205; 93005; 93010; 94002; 94003; 94667; 96361-59; 96365-59; 96366-59; 96372; 96372-59; 96375-59; 97116; 97162; 97167; 97530; 97535; 99283; 99285-25; C1751; C1894; C9113; G0480; J0132; J0360; J0610; J0690; J0696; J1430; J1650; J1885; J1940; J2250; J2405; J2550; J2704; J3010; J3475; J3480; J7030; J7040; J7050; J7060; J7070; J7120; P9016; P9035; P9059; Q9968

== ENCOUNTER 2019-04-12 18:08 | Emergency (ER) | payer MEDICARE ==
[~2019-04-12] VITALS: Ht 185.4 cm; Wt 90.7 kg
[~2019-04-12 18:08] MED LIST changes: +Ciloxan5 ML LEFTEYE; +Florastor250 MG PO; +HYDR10 PO; +MELO7.5 PO; +ONDA4ODT MM; +PANT40 PO
[2019-04-12 19:07] LABS: BASOPHILS ABSOLUTE AUTO 0.04 K/mm3 (0.00-0.23); BASOPHILS PERCENT AUTO 0 % (0-2); EOSINOPHILS ABSOLUTE AUTO 0.13 K/mm3 (0.00-0.68); EOSINOPHILS PERCENT AUTO 1 % (0-6); Hematocrit 32.8 % (37.0-53.0); Hemoglobin 10.6 g/dL (13.5-17.5); IMMATURE GRAN ABSOLUTE AUTO 0.16 K/mm3 (0.00-0.10); IMMATURE GRAN PERCENT AUTO 2 % (0-1); LYMPHOCYTES ABSOLUTE AUTO 1.75 K/mm3 (0.84-5.20); LYMPHOCYTES PERCENT AUTO 17 % (21-46); MONOCYTES ABSOLUTE AUTO 1.29 K/mm3 (0.16-1.47); MONOCYTES PERCENT AUTO 13 % (4-13); Mean Corpuscular HGB Conc 32.3 g/dL (31.5-36.5); Mean Corpuscular Volume 90 fL (80-100); Mean Platelet Volume 11.3 fL (9.1-12.4); NEUTROPHILS ABSOLUTE AUTO 6.66 K/mm3 (1.96-9.15); NEUTROPHILS PERCENT AUTO 66 % (41-73); Platelet Count 336 K/mm3 (150-400); RDW Coefficient Variation 15.5 % (11.7-14.2); RDW Standard Deviation 50.5 fL (35.1-46.3); Red Blood Cell Count 3.65 M/mm3 (4.30-5.90); White Blood Cell Count 10.03 K/mm3 (4.00-11.30)
[2019-04-12 19:21] LABS: Alanine Aminotransfer (ALT/SGP 217 U/L (12-78); Albumin, Blood 2.8 g/dL (3.4-5.0); Albumin/Globulin Ratio 0.7 (0.8-1.8); Alk Phos 107 U/L (50-136); Anion Gap 2 mmol/L (6-16); Aspartate Aminotrans (AST/SGOT 67 U/L (12-37); Bilirubin, Total 0.7 mg/dL (0.1-1.0); Blood Urea Nitrogen 22 mg/dL (8-24); Bun/Creatinine Ratio 34.8 (12.0-20.0); CO2, Blood 30 mmol/L (21-32); Calcium, Blood 8.7 mg/dL (8.5-10.1); Chloride, Blood 104 mmol/L (98-108); Creatinine, Blood 0.63 mg/dL (0.60-1.20); Globulin, Blood 4.1 g/dL (2.2-4.0); Glomerular Filtration Rate >60 (60-); Glucose, Blood 129 mg/dL (70-99); Potassium, Blood 5.3 mmol/L (3.5-5.5); Sodium, Blood 136 mmol/L (136-145); Total Protein, Blood 6.9 g/dL (6.4-8.2)
== END 2019-04-13 00:47 | disposition home or self-care (01) ==
LOC: ER 18:08
PROVIDERS: Physician Assistant
DX: K91.870 Postprocedural hematoma of a digestive system organ or structure following a digestive system procedure (principal); K92.1 Melena; G89.29 Other chronic pain; Z79.899 Other long term (current) drug therapy; Z87.11 Personal history of peptic ulcer disease
CPT/HCPCS: 36415; 74176; 80053; 85025; 99284-25

== ENCOUNTER 2019-04-15 19:15 | Emergency (ER) | payer MEDICARE ==
[~2019-04-15] VITALS: Ht 185.4 cm; Wt 86.2 kg
[2019-04-15 20:00] LABS: BASOPHILS ABSOLUTE AUTO 0.05 K/mm3 (0.00-0.23); BASOPHILS PERCENT AUTO 0 % (0-2); EOSINOPHILS ABSOLUTE AUTO 0.09 K/mm3 (0.00-0.68); EOSINOPHILS PERCENT AUTO 1 % (0-6); Hematocrit 35.4 % (37.0-53.0); Hemoglobin 11.6 g/dL (13.5-17.5); IMMATURE GRAN ABSOLUTE AUTO 0.05 K/mm3 (0.00-0.10); IMMATURE GRAN PERCENT AUTO 0 % (0-1); LYMPHOCYTES ABSOLUTE AUTO 1.99 K/mm3 (0.84-5.20); LYMPHOCYTES PERCENT AUTO 17 % (21-46); MONOCYTES ABSOLUTE AUTO 1.33 K/mm3 (0.16-1.47); MONOCYTES PERCENT AUTO 11 % (4-13); Mean Corpuscular HGB 28.6 pg (26.0-34.0); Mean Corpuscular HGB Conc 32.8 g/dL (31.5-36.5); Mean Platelet Volume 10.8 fL (9.1-12.4); NEUTROPHILS ABSOLUTE AUTO 8.11 K/mm3 (1.96-9.15); NEUTROPHILS PERCENT AUTO 70 % (41-73); Platelet Count 467 K/mm3 (150-400); RDW Coefficient Variation 14.9 % (11.7-14.2); RDW Standard Deviation 47.7 fL (35.1-46.3); Red Blood Cell Count 4.05 M/mm3 (4.30-5.90); White Blood Cell Count 11.62 K/mm3 (4.00-11.30)
[2019-04-15 20:02] LABS: Mean Corpuscular Volume 87 fL (80-100)
[2019-04-15 20:18] LABS: Alanine Aminotransfer (ALT/SGP 97 U/L (12-78); Albumin, Blood 3.2 g/dL (3.4-5.0); Albumin/Globulin Ratio 0.9 (0.8-1.8); Alk Phos 97 U/L (50-136); Anion Gap 7 mmol/L (6-16); Aspartate Aminotrans (AST/SGOT 22 U/L (12-37); Bilirubin, Total 1.2 mg/dL (0.1-1.0); Blood Urea Nitrogen 20 mg/dL (8-24); Bun/Creatinine Ratio 28.5 (12.0-20.0); CO2, Blood 34 mmol/L (21-32); Calcium, Blood 9.3 mg/dL (8.5-10.1); Chloride, Blood 96 mmol/L (98-108); Globulin, Blood 3.7 g/dL (2.2-4.0); Glomerular Filtration Rate >60 (60-); Glucose, Blood 136 mg/dL (70-99); Potassium, Blood 3.2 mmol/L (3.5-5.5); Salicylate <1.7 mg/dL (2.8-20.0); Sodium, Blood 137 mmol/L (136-145); Total Protein, Blood 6.9 g/dL (6.4-8.2)
[2019-04-15 20:23] LABS: Acetaminophen, Random <2.0 ug/mL (10.0-30.0)
[2019-04-15 20:35] LABS: U Amphetamine Screen Not Detected; U Barbituate Screen Not Detected; U Benzodiazapine Screen Not Detected; U Buprenorphine Screen Not Detected; U Cannabinoids Screen DETECTED; U Cocaine Screen Not Detected; U Methadone Screen Not Detected; U Methamphetamine Screen Not Detected; U Opiates Screen Not Detected; U Oxycodone Screen Not Detected; U Phencyclidine Screen Not Detected; U Propoxyphene Screen Not Detected
[2019-04-15] MEDS ORDERED: ACETAMINOPHEN500 MG PO (21:11)
[2019-04-15] MEDS ORDERED: ONDA4ODT MM (21:11)
[2019-04-15] MEDS ORDERED: Protonix40 MG PO (21:11)
== END 2019-04-15 22:19 | disposition home or self-care (01) ==
LOC: ER 19:15
PROVIDERS: Physician Assistant
DX: K92.2 Gastrointestinal hemorrhage, unspecified (principal); M54.5 Low back pain; G89.29 Other chronic pain; F17.200 Nicotine dependence, unspecified, uncomplicated; Z79.899 Other long term (current) drug therapy
CPT/HCPCS: 80053; 82271; 85025; 96374; 96375; 96376; 99284-25; A9270-GY; G0480; J1200; J1630; J2405

== ENCOUNTER 2019-04-18 04:18 | Emergency (ER) | payer MEDICARE ==
[~2019-04-18] VITALS: Ht 175.3 cm; Wt 81.7 kg
[~2019-04-18 04:18] MED LIST changes: +ACETAMINOPHEN500 MG PO; +Protonix40 MG PO
[2019-04-18 04:50] LABS: Calcium, Ionized (POC) 1.09 mmol/L (1.10-1.46); Chloride (POC) 95 mmol/L (98-108); Creatinine (POC) 1.3 mg/dL (0.8-1.3); Glucose (ISTAT POC) 180 mg/dL (70-99); Hemoglobin (POC) 9.2 g/dL (13.5-17.5); Potassium (POC) 4.1 mmol/L (3.5-5.5); Sodium (POC) 131 mmol/L (135-148); Total CO2 (POC) 25 mmol/L (21-32)
[2019-04-18 04:54] LABS: BASOPHILS ABSOLUTE AUTO 0.03 K/mm3 (0.00-0.23); BASOPHILS PERCENT AUTO 0 % (0-2); EOSINOPHILS ABSOLUTE AUTO 0.01 K/mm3 (0.00-0.68); EOSINOPHILS PERCENT AUTO 0 % (0-6); Hematocrit 27.1 % (37.0-53.0); Hemoglobin 9.1 g/dL (13.5-17.5); IMMATURE GRAN ABSOLUTE AUTO 0.19 K/mm3 (0.00-0.10); IMMATURE GRAN PERCENT AUTO 1 % (0-1); LYMPHOCYTES ABSOLUTE AUTO 2.09 K/mm3 (0.84-5.20); LYMPHOCYTES PERCENT AUTO 10 % (21-46); MONOCYTES ABSOLUTE AUTO 1.06 K/mm3 (0.16-1.47); MONOCYTES PERCENT AUTO 5 % (4-13); Mean Corpuscular HGB 29.7 pg (26.0-34.0); Mean Corpuscular HGB Conc 33.6 g/dL (31.5-36.5); Mean Corpuscular Volume 89 fL (80-100); Mean Platelet Volume 11.1 fL (9.1-12.4); NEUTROPHILS ABSOLUTE AUTO 16.92 K/mm3 (1.96-9.15); NEUTROPHILS PERCENT AUTO 84 % (41-73); Platelet Count 511 K/mm3 (150-400); RDW Coefficient Variation 14.6 % (11.7-14.2); RDW Standard Deviation 46.9 fL (35.1-46.3); Red Blood Cell Count 3.06 M/mm3 (4.30-5.90)
[2019-04-18 05:02] LABS: International Normalized Ratio 1.25
[2019-04-18 05:13] LABS: Alanine Aminotransfer (ALT/SGP 48 U/L (12-78); Albumin, Blood 2.8 g/dL (3.4-5.0); Albumin/Globulin Ratio 0.9 (0.8-1.8); Alk Phos 76 U/L (50-136); Anion Gap 10 mmol/L (6-16); Aspartate Aminotrans (AST/SGOT 17 U/L (12-37); Bilirubin, Total 0.6 mg/dL (0.1-1.0); Blood Urea Nitrogen 62 mg/dL (8-24); Bun/Creatinine Ratio 57.4 (12.0-20.0); CO2, Blood 24 mmol/L (21-32); Calcium, Blood 8.1 mg/dL (8.5-10.1); Chloride, Blood 100 mmol/L (98-108); Creatinine, Blood 1.08 mg/dL (0.60-1.20); Globulin, Blood 3.2 g/dL (2.2-4.0); Glomerular Filtration Rate >60 (60-); Glucose, Blood 186 mg/dL (70-99); Potassium, Blood 4.1 mmol/L (3.5-5.5); Sodium, Blood 134 mmol/L (136-145)
[2019-04-18 06:20] LABS: Calcium, Ionized (POC) 1.14 mmol/L (1.10-1.46); Chloride (POC) 97 mmol/L (98-108); Creatinine (POC) 1.2 mg/dL (0.8-1.3); Glucose (ISTAT POC) 144 mg/dL (70-99); Hemoglobin (POC) 9.2 g/dL (13.5-17.5); Potassium (POC) 3.6 mmol/L (3.5-5.5); Sodium (POC) 133 mmol/L (135-148); Total CO2 (POC) 27 mmol/L (21-32)
== END 2019-04-18 09:00 | disposition short-term general hospital (02) ==
LOC: ER 04:18
PROVIDERS: Emergency Medicine
DX: K92.2 Gastrointestinal hemorrhage, unspecified (principal); F43.21 Adjustment disorder with depressed mood; Z79.899 Other long term (current) drug therapy
CPT/HCPCS: 36415; 80047; 80053; 83690; 85014; 85025; 85610; 93005; 93010; 96361; 96365; 96366; 96375; 99285-25; C9113; G0480; J2405; J2550; J3010; J7030

== ENCOUNTER 2019-04-27 14:57 | Inpatient (IN) | payer MEDICARE, OTHER ==
[~2019-04-27] VITALS: Ht 185.4 cm; Wt 85.9 kg
[2019-04-27 15:37] LABS: BASOPHILS ABSOLUTE AUTO 0.02 K/mm3 (0.00-0.23); BASOPHILS PERCENT AUTO 0 % (0-2); EOSINOPHILS ABSOLUTE AUTO 0.02 K/mm3 (0.00-0.68); EOSINOPHILS PERCENT AUTO 0 % (0-6); Hemoglobin 7.7 g/dL (13.5-17.5); IMMATURE GRAN ABSOLUTE AUTO 0.07 K/mm3 (0.00-0.10); IMMATURE GRAN PERCENT AUTO 2 % (0-1); LYMPHOCYTES ABSOLUTE AUTO 0.95 K/mm3 (0.84-5.20); LYMPHOCYTES PERCENT AUTO 20 % (21-46); MONOCYTES ABSOLUTE AUTO 0.38 K/mm3 (0.16-1.47); MONOCYTES PERCENT AUTO 8 % (4-13); Mean Corpuscular HGB 27.8 pg (26.0-34.0); Mean Corpuscular HGB Conc 30.8 g/dL (31.5-36.5); Mean Platelet Volume 10.1 fL (9.1-12.4); NEUTROPHILS PERCENT AUTO 70 % (41-73); Platelet Count 276 K/mm3 (150-400); RDW Standard Deviation 49.2 fL (35.1-46.3); Red Blood Cell Count 2.77 M/mm3 (4.30-5.90); White Blood Cell Count 4.74 K/mm3 (4.00-11.30)
[2019-04-27 15:38] LABS: Mean Corpuscular Volume 90 fL (80-100)
[2019-04-27] MEDS ORDERED: GABA300 PO (15:41)
[2019-04-27] MEDS ORDERED: OMEPRAZOLE20 MG PO (15:41)
[2019-04-27 15:51] LABS: International Normalized Ratio 1.02; Prothrombin Time Results 10.8 Sec (9.7-11.5)
[2019-04-27 15:55] LABS: Alanine Aminotransfer (ALT/SGP 27 U/L (12-78); Albumin, Blood 2.4 g/dL (3.4-5.0); Albumin/Globulin Ratio 0.8 (0.8-1.8); Alk Phos 84 U/L (50-136); Anion Gap 1 mmol/L (6-16); Aspartate Aminotrans (AST/SGOT 18 U/L (12-37); Bilirubin, Total 0.4 mg/dL (0.1-1.0); Blood Urea Nitrogen 9 mg/dL (8-24); Bun/Creatinine Ratio 16.1 (12.0-20.0); CO2, Blood 31 mmol/L (21-32); Calcium, Blood 8.2 mg/dL (8.5-10.1); Chloride, Blood 108 mmol/L (98-108); Creatinine, Blood 0.56 mg/dL (0.60-1.20); Globulin, Blood 3.1 g/dL (2.2-4.0); Glomerular Filtration Rate >60 (60-); Glucose, Blood 117 mg/dL (70-99); Magnesium, Blood 2.1 mg/dL (1.6-2.4); Potassium, Blood 3.9 mmol/L (3.5-5.5); Sodium, Blood 140 mmol/L (136-145); Total Protein, Blood 5.5 g/dL (6.4-8.2); Troponin I <0.015 ng/mL (0.000-0.040)
[2019-04-27] MEDS ORDERED: ROXICODONE5 MG PO (16:20)
--- NOTE | 2019-04-27 17:27 | NUR ---
ATTEMPT TO GET PT REPORT. HUGO MOREIRA TO CALL BACK.
--- NOTE | 2019-04-27 17:53 | NUR ---
REPORT FROM LILLIE WELCH RN.
--- NOTE | 2019-04-27 18:16 | NUR ---
PT TO PCU 6 VIA STRETCHER FROM ER. PT ALERT AND ORIENTED ON ARRIVAL. IV PROTONIX INF WELL. BLOOD PRODUCTS INFUSING. ORIENTED PT TO ROOM, URINAL PROVIDED. CALL LIGHT IN REACH, THERMOSTAT ADJUSTED PER PT REQUEST.
--- NOTE | 2019-04-27 18:42 | NUR ---
PT PLACED ON TELE PER ADMIT ORDERS.
--- NOTE | 2019-04-27 18:49 | NUR ---
CONSULT CALLED TO DR VICK ANSWERING SERVICE. STAFF WILL NOTIFY DR MORALES OF PT IN THE MORNING.
[2019-04-28 04:01] LABS: Hematocrit 25.2 % (37.0-53.0); Hemoglobin 7.8 g/dL (13.5-17.5); Mean Corpuscular HGB 26.6 pg (26.0-34.0); Mean Platelet Volume 9.6 fL (9.1-12.4); Platelet Count 248 K/mm3 (150-400); RDW Coefficient Variation 15.9 % (11.7-14.2); RDW Standard Deviation 50.4 fL (35.1-46.3); Red Blood Cell Count 2.93 M/mm3 (4.30-5.90); White Blood Cell Count 5.25 K/mm3 (4.00-11.30)
[2019-04-28 04:11] LABS: Mean Corpuscular Volume 86 fL (80-100)
--- NOTE | 2019-04-28 06:15 | NUR ---
SHIFT SUMMARY PT SLEEPING IN ROOM COMFORTABLY AT THIS TIME. NO ACUTE CHANGES IN STATUS T/O NIGHT. PT SLEPT WELL IN PERIODS AND AWOKE 4Q HR FOPR PAIN MEDS. PT HAS PROTONIX GTT INFUSING IN PIV. PT RECEIVED 1 UNIT PRBC'S YESTERDAY THAT FINISHED AT APPROX 1999. PT TOLERATED WELL. HGB REMAINS LOW, PT HAS NO SIGNS OF ACTIVE BLEEDING. ABD SOFT NONTENDER. RESP EVEN UNLABORED ON RA W/ SATS >92%. DENIES CP, DENIES SOB. CALL LIGHT WITHIN REACH.
--- NOTE | 2019-04-28 08:17 | NUR ---
History, Chart, Medications and Allergies reviewed before start of procedure. Patient confirms NPO status and agrees with scheduled surgery.
--- NOTE | 2019-04-28 08:31 | NUR ---
04/28/19 0831 Pipo Kelley Bite Block Placed. Patient to ENDO 1History, Chart, Medications and Allergies reviewed before start of procedure.MONITOR INTACT WITH CONTINUOUS PULSE OXIMETRY AND INTERMITTENT BP.See Anesthesia record
--- NOTE | 2019-04-28 16:59 | NUR ---
SHIFT SUMMARY PT A&Ox4. CALM AND COOPERATIVE WITH CARE. PT RESTING IN BED DURING SHIFT, APPEARS TO BE SLEEPING T/O SHIFT. PT HAS EGD COMPLETED THIS AM. PT REPORTS PAIN IN ABD AND BACK, MEDICATE x2 WITH POSITIVE RESULTS. PT REPORTS NAUSEA, MEDICATED WITH ZOFRANx1 THIS AM. PT DENIES SOB, BREATHING EVEN AND UNLABORED. PT RECEIVING IV PROTONIX. VSS. NO OTHER ACUTE CHANGES NOTED DURING SHIFT. WILL CONTINUE TO MONITOR UNITL REPORT TO ONCOMING RN.
--- NOTE | 2019-04-29 05:28 | NUR ---
SHIFT SUMMARY PT SLEEPING IN ROOM COMFORTABLY AT THIS TIME. NO ACUTE CHANGES IN STATSU T/O NIGHT. PT SLEPT WELL AND DENIED NEEDS. WOKE FOR PAIN MEDS TWICE AND PT WAS MEDICATED PER EMAR. RESP EVEN UNLABORED ON RA W/ SATS >92%, DENIES SOB. DENIES CP. PROTONIX GTT INFUSING IN PIV. CALL LIGHT IN REACH.
--- NOTE | 2019-04-29 11:45 | NUR ---
TRANSFER NOTE REPORT GIVE TO HUGO DURHAM ON MEDICAL FLOOR. PT TRANSFERED TO ROOM 334. PT A&Ox4. PT IS ANXIOUS TODAY REGARDING DISCHARGE AND PAIN MANAGEMENT. DR ORTEGA, THIS RN AND HOUSEKEEPING CLEANER INGRID HAVE EDUCATED PT ON PAIN MANAGEMENT, PT STATES HE HAS A REFERRAL TO A PAIN CLINIC IN [place], PANEL FLOW MACHINE OPERATOR CONSULTED TO ASSIST WITH DISCHARGE PLANNING AND APPOINTMENTS. PT REPORTS ABD AND BACK PAIN, MEDICATED x1 WITH AM WITH OXYCODONE. PT RECEIVING IV PROTONIX AND PO CARAFATE. PT REPORTS NAUSEA THIS AM, MEDICATED x1 WITH ZOFRAN WITH POSITIVE RESULTS. PT DENIES SOB, >94% ON RA. PT REPORTS 1 BM THIS AM, FLUSHED PRIOR TO STAFF SEEING IT, PT REPORTS SMALL RED SPOT ON TOILET PAPER. REPORT GIVEN TO RN. PT TO ROOM VIA WHEELCHAIR.
--- NOTE | 2019-04-29 17:46 | NUR ---
PATIENT TRANSFERRED FROM PCU THIS AFTERNOON. HE HAS BEEN COMPLAINING OF BACK PAIN AND "NOT BEING ALBE TO GET THE HELP OR PROCEDURES DONE SINCE MOVING HERE" MOST OF THE SHIFT. HE APPEARS DEPRESSED AND EVEN WITH PAIN MEDS IS STATING HE IS IN PAIN. HE HAS HAD NO COMPLAINTS OF BELLY PAIN, JUST CHRONIC BACK PAIN. HE HAS NOT TRIED TO GET OUT OF BED, USES HIS CALL LIGHT NEEDED, AND IS ABLE TO EXPRESS ANY NEEDS.
--- NOTE | 2019-04-29 20:21 | NUR ---
1944: ASSUMED CARE OF PATIENT. PT SLEEPING QUIETLY AND IN NO APPARENT DISTRESS. BED LOW AND LOCKED. RR EVEN AND UNLABORED. CALL BELTRÁN WITHIN REACH
[2019-04-30 05:00] LABS: Hematocrit 27.2 % (37.0-53.0); Hemoglobin 8.4 g/dL (13.5-17.5); Mean Corpuscular HGB 26.5 pg (26.0-34.0); Mean Corpuscular HGB Conc 30.9 g/dL (31.5-36.5); Mean Corpuscular Volume 86 fL (80-100); Mean Platelet Volume 9.9 fL (9.1-12.4); Platelet Count 210 K/mm3 (150-400); RDW Coefficient Variation 15.3 % (11.7-14.2); RDW Standard Deviation 48.5 fL (35.1-46.3); Red Blood Cell Count 3.17 M/mm3 (4.30-5.90); White Blood Cell Count 4.66 K/mm3 (4.00-11.30)
[2019-04-30] MEDS ORDERED: PANT40 PO (11:38)
--- NOTE | 2019-04-30 12:24 | NUR ---
DISCHARGE INSTRUCTIONS REVIEWED WITH PT. IV DC'D INTACT. RX FAXED TO [facility]. HARD SCRIPT FOR OXY GIVEN TO PT. PT REPORTS HE DOES NOT HAVE A RIDE OR MONEY FOR A RIDE HOME. SPOKE WITH PT ADVOCATE AND COURTESY TAXI CALLED PER [facility]. AWAITING ESCORT OUT AT THIS TIME. F/U MADE WITH PALLAVI RASMUSSEN IN PCP'S OFFICE, PCP NOT AVAILABLE FOR APPT THIS WEEK, APPT MADE FOR TOMORROW AM.
--- NOTE | 2019-04-30 12:42 | NUR ---
PT DC'D HOME AT 1234, ESCORTED OUT VIA W/C TO [facility].
== END 2019-04-30 12:34 | disposition home or self-care (01) | DRG 378 ==
LOC: ER 14:57 → PCU 14:58 → ER 14:58 → PCU 18:10 → MEDS 04-28 15:37 → PCU 04-29 11:32 → MEDS 04-29 11:32 → ENPENDDIS 04-30 11:14 → MEDS 04-30 12:34
PROVIDERS: Emergency Medicine; ADMIT Internal Medicine
PROC: 0DJ08ZZ Inspection of Upper Intestinal Tract, Via Natural or Artificial Opening Endoscopic (ICD-10-PCS; 2019-04-28)
PROC: 30233N1 Transfusion of Nonautologous Red Blood Cells into Peripheral Vein, Percutaneous Approach (ICD-10-PCS; principal; 2019-04-29)
DX: K26.4 Chronic or unspecified duodenal ulcer with hemorrhage (principal); D62 Acute posthemorrhagic anemia; Z98.1 Arthrodesis status; Z87.891 Personal history of nicotine dependence; M54.9 Dorsalgia, unspecified; K20.9 Esophagitis, unspecified; F43.21 Adjustment disorder with depressed mood
CPT/HCPCS: 36415; 36430; 80048; 80053; 83690; 83735; 84484; 85025; 85027; 85610; 86850; 86900; 86901; 86923; 93005; 93010; 96361; 96365; 96366; 96375; 96376; 99285-25; C9113; G0378; J1170; J2405; J2704; J7030; J7120; P9016

== ENCOUNTER 2019-05-02 13:30 | Emergency (ER) | payer MEDICARE, OTHER ==
[~2019-05-02] VITALS: Ht 185.4 cm; Wt 81.7 kg
[~2019-05-02 13:30] MED LIST changes: +GABA300 PO; +OMEPRAZOLE20 MG PO; +ROXICODONE5 MG PO
[2019-05-02 14:20] LABS: BASOPHILS ABSOLUTE AUTO 0.02 K/mm3 (0.00-0.23); BASOPHILS PERCENT AUTO 1 % (0-2); EOSINOPHILS ABSOLUTE AUTO 0.04 K/mm3 (0.00-0.68); EOSINOPHILS PERCENT AUTO 1 % (0-6); Hemoglobin 8.9 g/dL (13.5-17.5); IMMATURE GRAN ABSOLUTE AUTO 0.02 K/mm3 (0.00-0.10); IMMATURE GRAN PERCENT AUTO 1 % (0-1); LYMPHOCYTES ABSOLUTE AUTO 1.19 K/mm3 (0.84-5.20); LYMPHOCYTES PERCENT AUTO 32 % (21-46); MONOCYTES PERCENT AUTO 8 % (4-13); Mean Corpuscular HGB 26.8 pg (26.0-34.0); Mean Corpuscular HGB Conc 30.7 g/dL (31.5-36.5); Mean Corpuscular Volume 87 fL (80-100); Mean Platelet Volume 10.4 fL (9.1-12.4); NEUTROPHILS PERCENT AUTO 57 % (41-73); Platelet Count 201 K/mm3 (150-400); RDW Coefficient Variation 15.1 % (11.7-14.2); Red Blood Cell Count 3.32 M/mm3 (4.30-5.90); White Blood Cell Count 3.67 K/mm3 (4.00-11.30)
[2019-05-02 15:15] LABS: Alanine Aminotransfer (ALT/SGP 21 U/L (12-78); Albumin, Blood 2.8 g/dL (3.4-5.0); Albumin/Globulin Ratio 0.8 (0.8-1.8); Alk Phos 86 U/L (50-136); Anion Gap 7 mmol/L (6-16); Aspartate Aminotrans (AST/SGOT 17 U/L (12-37); Bilirubin, Total 0.4 mg/dL (0.1-1.0); Blood Urea Nitrogen 11 mg/dL (8-24); Bun/Creatinine Ratio 19.1 (12.0-20.0); CO2, Blood 26 mmol/L (21-32); Calcium, Blood 8.4 mg/dL (8.5-10.1); Chloride, Blood 108 mmol/L (98-108); Creatinine, Blood 0.58 mg/dL (0.60-1.20); Globulin, Blood 3.3 g/dL (2.2-4.0); Glomerular Filtration Rate >60 (60-); Glucose, Blood 119 mg/dL (70-99); Potassium, Blood 3.8 mmol/L (3.5-5.5); Sodium, Blood 141 mmol/L (136-145); Total Protein, Blood 6.1 g/dL (6.4-8.2)
== END 2019-05-02 17:12 | disposition home or self-care (01) ==
LOC: ER 13:30
PROVIDERS: Emergency Medicine
DX: R42 Dizziness and giddiness (principal); K92.2 Gastrointestinal hemorrhage, unspecified; G89.29 Other chronic pain; M54.9 Dorsalgia, unspecified; Z87.891 Personal history of nicotine dependence
CPT/HCPCS: 36415; 80053; 85025; 86850; 86900; 86901; 93005; 93010; 96361; 96374; 99284-25; J2405; J7120

== ENCOUNTER 2019-09-28 09:38 | Emergency (ER) | payer MEDICARE, OTHER ==
[~2019-09-28] VITALS: Ht 185.4 cm; Wt 90.7 kg
[2019-09-28] MEDS ORDERED: SUBOXONE 8 MG-1 EACH SL (10:47)
[2019-09-28] MEDS ORDERED: ERYT1OIN LEFTEYE (10:54)
== END 2019-09-28 11:19 | disposition home or self-care (01) ==
LOC: ER 09:38
DX: H10.9 Unspecified conjunctivitis (principal); H53.9 Unspecified visual disturbance; Z79.899 Other long term (current) drug therapy; Z87.891 Personal history of nicotine dependence
CPT/HCPCS: 99282

== ENCOUNTER 2020-02-17 10:35 | Emergency (ER) | payer MEDICARE, OTHER ==
[~2020-02-17] VITALS: Ht 188 cm; Wt 99.8 kg
[~2020-02-17 10:35] MED LIST changes: +Polytrim Eye Dr10 ML LEFTEYE
[2020-02-17] MEDS ORDERED: POLYTRIM EYE DR10 M1 LEFTEYE (11:48)
== END 2020-02-17 11:50 | disposition home or self-care (01) ==
LOC: ER 10:35
DX: H10.9 Unspecified conjunctivitis (principal); F17.210 Nicotine dependence, cigarettes, uncomplicated
CPT/HCPCS: 99282

== ENCOUNTER 2020-11-29 10:48 | Emergency (ER) | payer MEDICARE, OTHER ==
[~2020-11-29] VITALS: Ht 185.4 cm; Wt 104.3 kg
[~2020-11-29 10:48] MED LIST changes: +POLYTRIM EYE DR10 M1 LEFTEYE
[2020-11-29] MEDS ORDERED: NEURONTIN300 MG PO (10:56)
== END 2020-11-29 13:40 | disposition home or self-care (01) ==
LOC: ER 10:48
DX: H11.31 Conjunctival hemorrhage, right eye (principal); H54.40 Blindness, one eye, unspecified eye; F17.210 Nicotine dependence, cigarettes, uncomplicated; Z23 Encounter for immunization; Y04.2XXA Assault by strike against or bumped into by another person, initial encounter
CPT/HCPCS: 70450; 70486; 72125; 90471; 90714; 99284-25; L0160

== ENCOUNTER 2021-08-21 14:40 | Emergency (ER) | payer MEDICARE, OTHER ==
[~2021-08-21] VITALS: Ht 185.4 cm; Wt 106.6 kg
[~2021-08-21 14:40] MED LIST changes: +NEURONTIN300 MG PO
[2021-08-21] MEDS ORDERED: CEPH500 PO (16:44)
== END 2021-08-21 17:26 | disposition home or self-care (01) ==
LOC: ER 14:40
DX: L02.415 Cutaneous abscess of right lower limb (principal); Z87.891 Personal history of nicotine dependence
CPT/HCPCS: 10060; 99282-25

== ENCOUNTER 2022-06-24 22:22 | Emergency (ER) | payer MEDICARE, OTHER ==
[~2022-06-24] VITALS: Ht 185.4 cm; Wt 99.8 kg
[~2022-06-24 22:22] MED LIST changes: +CEPH500 PO
[2022-06-24] MEDS ORDERED: CEPH500 PO (23:11)
== END 2022-06-24 23:20 | disposition home or self-care (01) ==
LOC: ER 22:22
DX: L03.115 Cellulitis of right lower limb (principal); Z79.899 Other long term (current) drug therapy; Z87.891 Personal history of nicotine dependence
CPT/HCPCS: A9270

== ENCOUNTER 2022-09-16 09:07 | Emergency (ER) | payer MEDICARE, OTHER ==
[~2022-09-16] VITALS: Ht 185.4 cm; Wt 106.6 kg
== END 2022-09-16 10:12 | disposition left against medical advice (07) ==
LOC: ER 09:07
DX: M79.89 Other specified soft tissue disorders (principal); Z53.21 Procedure and treatment not carried out due to patient leaving prior to being seen by health care provider
CPT/HCPCS: 99281

== ENCOUNTER 2023-12-18 22:02 | Emergency (ER) | payer MEDICARE, OTHER ==
[~2023-12-18] VITALS: Ht 185.4 cm; Wt 99.8 kg
[2023-12-18 22:05] VITALS: BP 135/94
[2023-12-18] MEDS ORDERED: Buprenorphine HCL/Naloxone HCL 8MG-2MG Tab SL ONE (23:20)
[2023-12-18] MEDS ORDERED: Ketorolac Tromethamine 30mg Vial IM ONE (23:25)
[2023-12-18] MEDS ORDERED: Lidocaine 4% 1 Patch TOP ONE (23:25)
[2023-12-18] MEDS ORDERED: SUBOXONE 8 MG-1 EACH SL (23:48)
== END 2023-12-19 | disposition home or self-care (01) ==
LOC: ER 22:02
DX: M54.9 Dorsalgia, unspecified (principal); G89.29 Other chronic pain; F11.23 Opioid dependence with withdrawal; Z87.891 Personal history of nicotine dependence
CPT/HCPCS: 96372; 99283-25; A9270; J1885

== ENCOUNTER 2024-06-28 16:03 | Inpatient (IN) | payer MEDICARE, OTHER ==
[~2024-06-28] VITALS: Ht 185.4 cm; Wt 86.7 kg
[2024-06-28 16:47] LABS: BASOPHILS ABSOLUTE AUTO 0.06 K/mm3 (0.00-0.23); BASOPHILS PERCENT AUTO 0 % (0-2); EOSINOPHILS ABSOLUTE AUTO 0.01 K/mm3 (0.00-0.68); EOSINOPHILS PERCENT AUTO 0 % (0-6); Hematocrit 39.1 % (37.0-53.0); Hemoglobin 12.8 g/dL (13.5-17.5); IMMATURE GRAN ABSOLUTE AUTO 0.12 K/mm3 (0.00-0.10); IMMATURE GRAN PERCENT AUTO 1 % (0-1); LYMPHOCYTES ABSOLUTE AUTO 0.65 K/mm3 (0.84-5.20); LYMPHOCYTES PERCENT AUTO 3 % (21-46); MONOCYTES ABSOLUTE AUTO 1.11 K/mm3 (0.16-1.47); MONOCYTES PERCENT AUTO 5 % (4-13); Mean Corpuscular HGB 28.6 pg (26.0-34.0); Mean Corpuscular HGB Conc 32.7 g/dL (31.5-36.5); Mean Corpuscular Volume 87 fL (80-100); Mean Platelet Volume 11.6 fL (9.1-12.4); NEUTROPHILS ABSOLUTE AUTO 18.71 K/mm3 (1.96-9.15); NEUTROPHILS PERCENT AUTO 91 % (41-73); Platelet Count 297 K/mm3 (150-400); RDW Coefficient Variation 15.6 % (11.7-14.2); RDW Standard Deviation 49.3 fL (35.1-46.3); Red Blood Cell Count 4.48 M/mm3 (4.30-5.90); White Blood Cell Count 20.66 K/mm3 (4.00-11.30)
[2024-06-28 17:04] LABS: Albumin, Blood 3.1 g/dL (3.4-5.0); Albumin/Globulin Ratio 0.6 (0.8-1.8); Bilirubin, Total 0.3 mg/dL (0.1-1.0); Bun/Creatinine Ratio 21.7 (12.0-20.0); Calcium, Blood 9.1 mg/dL (8.5-10.1); Creatinine, Blood 0.64 mg/dL (0.60-1.20); Globulin, Blood 4.8 g/dL (2.2-4.0); Potassium, Blood 4.1 mmol/L (3.5-5.5); Total Protein, Blood 7.9 g/dL (6.4-8.2)
[2024-06-28] MEDS ORDERED: Piperacillin/Tazobactam Sod 4.5 GM in NS 100 ML IV ONE (19:10)
[2024-06-28] MEDS ORDERED: FentaNYL Citrate 50 MCG/ML 2 ML Injection IV PRN (19:35)
[2024-06-28] MEDS ORDERED: NS 1,000 ML IV SCH (19:35)
[2024-06-28] MEDS ORDERED: FLU VACC TS2024-25(6MOS UP)/PF 45 MCG/0.5 ML SYRINGE IM SCH (19:35)
[2024-06-28] MEDS ORDERED: Ondansetron HCl 2 MG / ML 2ML Vial IV PRN (19:35)
[2024-06-28 21:53] VITALS: BP 141/87
--- NOTE | 2024-06-28 22:27 | NUR ---
ARRIVAL TO UNIT PT ARRIVED TO UNIT FROM ED AT 2145. SLEEPING BUT AROUSABLE. A&OX4. PT C/O ABD PAIN 5/10, DIFFUSE. DENIES NAUSEA. DENIES SOB, CHEST PAIN/PRESSURE. REQUESTING ANALGESICS, THIS RN DISCUSSED NEXT AVAILABLE DOSE PER EMAR. PT VOICED UNDERSTANDING AND RETURNED TO SLEEP. CHANGED INTO HOSPITAL ATTIRE. VSS. CONTINUOUS PULSE OX APPLIED D/T IV NARCOTICS ON BOARD. SPO2 91% RA ASLEEP. ORIENTED PT TO UNIT. DISC NPO STATUS & EXPECTATIONS FOR HOSPITALIZATION. CALL LIGHT IN REACH, INSTRUCTED PT ON USE. INSTRUCTED PT TO PUSH CALL LIGHT WHEN FEELS URGE TO VOID D/T NEED FOR UA PER MD ORDERS. PT VOICED UNDERSTANDING. TELE IN PLACE, SR 73 PER HO. PT VOICED UNDERSTANDING OF PLAN OF CARE. DENIES QUESTIONS/CONCERNS AT THIS TIME.
--- NOTE | 2024-06-29 04:20 | NUR ---
SHIFT SUMMARY A&OX4. ENDORSES DIFFUSE ABD PAIN 12/29. PAIN MANAGED UTILIZING NPIS AND PER EMAR. NPO STATUS. IVF PER EMAR. PT ABLE TO REST DURING SHIFT. TELEMTRY AND CONTINUOUS PULSE OXIMETRY IN PLACE. VSS. PT VOICED UNDERSTANDING OF PLAN OF CARE, DENIES QUESTIONS/CONCERNS AT THIS TIME.
[2024-06-29 06:12] VITALS: BP 126/74
[2024-06-29 07:18] VITALS: BP 105/59
[2024-06-29 07:38] LABS: BASOPHILS PERCENT AUTO 0 % (0-2); EOSINOPHILS ABSOLUTE AUTO 0.01 K/mm3 (0.00-0.68); EOSINOPHILS PERCENT AUTO 0 % (0-6); Hematocrit 36.3 % (37.0-53.0); Hemoglobin 12.1 g/dL (13.5-17.5); IMMATURE GRAN ABSOLUTE AUTO 0.16 K/mm3 (0.00-0.10); IMMATURE GRAN PERCENT AUTO 1 % (0-1); LYMPHOCYTES ABSOLUTE AUTO 0.54 K/mm3 (0.84-5.20); LYMPHOCYTES PERCENT AUTO 2 % (21-46); MONOCYTES ABSOLUTE AUTO 2.91 K/mm3 (0.16-1.47); MONOCYTES PERCENT AUTO 11 % (4-13); Mean Corpuscular HGB 28.5 pg (26.0-34.0); Mean Corpuscular HGB Conc 33.3 g/dL (31.5-36.5); Mean Corpuscular Volume 86 fL (80-100); Mean Platelet Volume 11.6 fL (9.1-12.4); NEUTROPHILS ABSOLUTE AUTO 23.66 K/mm3 (1.96-9.15); NEUTROPHILS PERCENT AUTO 86 % (41-73); Platelet Count 285 K/mm3 (150-400); RDW Coefficient Variation 15.8 % (11.7-14.2); RDW Standard Deviation 49.4 fL (35.1-46.3); Red Blood Cell Count 4.24 M/mm3 (4.30-5.90); White Blood Cell Count 27.38 K/mm3 (4.00-11.30)
[2024-06-29 07:58] LABS: Albumin, Blood 2.6 g/dL (3.4-5.0); Albumin/Globulin Ratio 0.6 (0.8-1.8); Bilirubin, Total 0.3 mg/dL (0.1-1.0); Bun/Creatinine Ratio 34.8 (12.0-20.0); Calcium, Blood 8.3 mg/dL (8.5-10.1); Creatinine, Blood 0.6 mg/dL (0.60-1.20); Globulin, Blood 4.1 g/dL (2.2-4.0); Potassium, Blood 3.9 mmol/L (3.5-5.5); Total Protein, Blood 6.7 g/dL (6.4-8.2)
[2024-06-29] MEDS ORDERED: Buprenorphine HCL/Naloxone HCL 2-0.5MG 1 EA SL SCH (09:00)
--- NOTE | 2024-06-29 10:32 | NUR ---
CALL BACK TO DR KEBEDE TO REQUEST IVF. PT KEPT NPO AT THIS TIME. PT HAS BED ALARM IN PLACE BECAUSE IT'S UNSURE IF PT WILL USE CALL LIGHT BEFORE GETTING UP.
[2024-06-29] MEDS ORDERED: NS 1,000 ML IV SCH (10:35)
--- NOTE | 2024-06-29 11:17 | NUR ---
UPDATE PT HAS BEEN KEPT NPO, PROVIDED WITH SPONGES TO WET MOUTH. PT GENERALLY FEELS POORLY. NO COMPLAINTS OF NAUSEA. NO EMESIS UP TO THIS POINT. PT MEDICATED PRN FOR PAIN, WHICH SEEMS TO KEEP HIM COMFORTABLE. PT ON CONT BIOX AT 91-92%. NS INFUSING PER ORDER. SIDE RAILS UP AND CALL LIGHT IN REACH.
[2024-06-29 15:28] VITALS: BP 111/67
--- NOTE | 2024-06-29 18:00 | NUR ---
SHIFT SUMMARY NOT MAJOR CHANGES. PT CONT TO FELL GENERALLY UNWELL. DR WU DID CHANGE DIET TO CLEAR LIQUIDS, INDICATING THAT NO SURGICAL PROCEDURE IS WARRANTED AT THIS TIME. NS CONT TO INFUSE AT 125ML/HR. ADEQUATE PAIN CONTROL WITH PRN FENTANYL. PT HAS BEEN SLEEPING MOST OF THE TIME. VSS. MIESHA PO FLUIDS FINE. NO N/V.
[2024-06-29 19:31] VITALS: BP 128/77
[2024-06-29] MEDS ORDERED: Lactated Ringer's 1,000 ML IV SCH (20:25)
[2024-06-29] MEDS ORDERED: Lactated Ringer's 500 ML IV SCH (21:00)
[2024-06-30] MEDS ORDERED: Piperacillin/Tazobactam Sod 3.375 GM in NS 100 ML IV SCH
[2024-06-30 02:45] LABS: Source, Urine Clean Catch
[2024-06-30 03:19] LABS: Bilirubin, Urine Neg (Neg); Blood, Urine Neg (Neg); Glucose Qualitative, Urine Neg (Neg); Ketones, Urine Neg (Neg); Leukocyte Esterase, Urine Neg (Neg); Nitrite, Urine Neg (Neg); Protein, Urine 1+ (Neg); Urobilinogen, Urine NORM (Normal)
[2024-06-30 03:31] LABS: Appearance, Urine Clear (Clear); Color, Urine Yellow (P-Yellow)
[2024-06-30 04:27] VITALS: BP 140/76
[2024-06-30 05:28] LABS: BASOPHILS ABSOLUTE AUTO 0.06 K/mm3 (0.00-0.23); BASOPHILS PERCENT AUTO 1 % (0-2); EOSINOPHILS ABSOLUTE AUTO 0.05 K/mm3 (0.00-0.68); EOSINOPHILS PERCENT AUTO 1 % (0-6); Hematocrit 32.7 % (37.0-53.0); Hemoglobin 10.7 g/dL (13.5-17.5); IMMATURE GRAN PERCENT AUTO 1 % (0-1); LYMPHOCYTES ABSOLUTE AUTO 1.05 K/mm3 (0.84-5.20); LYMPHOCYTES PERCENT AUTO 11 % (21-46); MONOCYTES ABSOLUTE AUTO 1.93 K/mm3 (0.16-1.47); MONOCYTES PERCENT AUTO 21 % (4-13); Mean Corpuscular HGB 28.5 pg (26.0-34.0); Mean Corpuscular HGB Conc 32.7 g/dL (31.5-36.5); Mean Corpuscular Volume 87 fL (80-100); Mean Platelet Volume 11.2 fL (9.1-12.4); NEUTROPHILS ABSOLUTE AUTO 6.14 K/mm3 (1.96-9.15); NEUTROPHILS PERCENT AUTO 66 % (41-73); Platelet Count 243 K/mm3 (150-400); RDW Coefficient Variation 15.7 % (11.7-14.2); RDW Standard Deviation 50.3 fL (35.1-46.3); Red Blood Cell Count 3.76 M/mm3 (4.30-5.90); White Blood Cell Count 9.33 K/mm3 (4.00-11.30)
[2024-06-30 06:00] LABS: Bun/Creatinine Ratio 28.3 (12.0-20.0); Calcium, Blood 8.5 mg/dL (8.5-10.1); Creatinine, Blood 0.67 mg/dL (0.60-1.20); Magnesium, Blood 1.8 mg/dL (1.6-2.4); Phosphorus, Blood 2.2 mg/dL (2.5-4.9); Potassium, Blood 3.6 mmol/L (3.5-5.5)
[2024-06-30 07:47] VITALS: BP 124/74
--- NOTE | 2024-06-30 07:52 | NUR ---
SHIFT SUMMARY AOX3-4, MORE LETHARGIC & DROWSY @BEGINNING OF SHIFT. EVEN STATED HE FELT "MORE CONFUSED" THEN USUAL. WAS SLOW TO RESPOND TO QUESTIONS & HAD TO THINK LONG BEFORE ANSWERING CORRECTLY. HYPOACTIVE BT. REPORTED NAUSEA 1X, MEDICATED W/ZOFRAN & NO EMESIS OR NAUSEA. TOLERATING CLEAR LIQUIDS. REPORTS 6-7 ABD PAIN, MEDICATED 2x W/50MCG IV FENTANYL & PT REPORTS PAIN LEVEL DROPS TO 2/10 & IS TOLERABLE FOR A FEW HOURS. VSS. TELE NSR W/BBB HR 81. INFORMED DR WU @HS OF NO BOLUS AFTER CRITICAL LA & NO ABX STARTED & HE ORDERED 1x 500ML BOLUS LR, ADDED ABX & CHANGED MAINTAINENCE IV FLUIDS TO LR @150/HR. CALL LIGHT IN REACH.
--- NOTE | 2024-06-30 08:31 | NUR ---
pt laying in bed moaning, states his back and abd hurt, fentanyl given, states his pain is down to a 4 but going back up, a/ox4, cooperative with care, follows commands, lungs are clear in the upper [place], dim in bases, resp even and unlabored, no cough noted, on cont ox, on r/a, hrr, no edema noted, ppp+2, cap refill<3 sec, vs stable, afebrile, piv to rac site is clear and patent, infusing lr at 150mls/hr, btx4, a bit hypoactive, abd distended and somewhat firm, he denies passing flatus, can't remember when his last bm was, voids without diff, skin c/w/d, maew, but hurts to move, alondra, call light in reach.
[2024-06-30] MEDS ORDERED: Lactated Ringer's 1,000 ML IV SCH (09:00)
--- NOTE | 2024-06-30 12:16 | NUR ---
pt resting quietly with eyes closed, no changes or needs at this time, call light in reach, his LR was turned down to 100mls/hr.
[2024-06-30] MEDS ORDERED: Polyethylene Glycol 3350 17 gm PO ONE (14:05)
[2024-06-30 15:27] VITALS: BP 112/53
--- NOTE | 2024-06-30 17:54 | NUR ---
pt has slept most of the day, required 3 doses of pain meds this shift, he yells out when he needs something, he expressed he thought he is constipated and wanted something for it, attempted to explain what is going on, but wants to try, notified recieved one time order for miralax, he attempted to drink a clear ensure and made his abd hurt and cramp, he decided not to take the miralax, no further changes this shift. call light in reach.
[2024-06-30] MEDS ORDERED: Ketorolac Tromethamine 15mg Vial IV PRN (18:05)
[2024-06-30 19:29] VITALS: BP 102/51
[2024-07-01 03:33] VITALS: BP 117/53
[2024-07-01 05:29] LABS: Hematocrit 33.2 % (37.0-53.0); Hemoglobin 10.5 g/dL (13.5-17.5); Mean Corpuscular HGB 28.3 pg (26.0-34.0); Mean Corpuscular HGB Conc 31.6 g/dL (31.5-36.5); Mean Corpuscular Volume 90 fL (80-100); Mean Platelet Volume 11.3 fL (9.1-12.4); Platelet Count 229 K/mm3 (150-400); RDW Coefficient Variation 15.7 % (11.7-14.2); RDW Standard Deviation 52.3 fL (35.1-46.3); Red Blood Cell Count 3.71 M/mm3 (4.30-5.90); White Blood Cell Count 8.19 K/mm3 (4.00-11.30)
[2024-07-01 05:51] LABS: Bun/Creatinine Ratio 28.6 (12.0-20.0); Calcium, Blood 8.3 mg/dL (8.5-10.1); Creatinine, Blood 0.66 mg/dL (0.60-1.20); Magnesium, Blood 1.7 mg/dL (1.6-2.4); Potassium, Blood 3.4 mmol/L (3.5-5.5)
--- NOTE | 2024-07-01 05:57 | NUR ---
SHIFT SUMMARY AOX4. HAS SLEPT SOUNDLY T/O NIGHT. DENIES N/V. VERY HYPERACTIVE BT. SEVERE DISTENDED ABD. REPORTS INCREASE IN ABD PAIN RATING IT A 6-7/10, MEDICATED W/50MCG IV FENTANYL, TORADOL & PT STATES PAIN LEVEL DECREASES TO 2-3/10. TENDER TO PALPATION OR MOVEMENT. VSS. TELE NSR W/BBB HR 63. PT HAS PASSED FLATUS 2x THIS SHIFT. INCONT/CONT OF URINE. ENCOURAGED PT TO GET OOB & AMBULATE HALLS TO PASS MORE FLATUS & PT REFUSED 2x . CALL LIGHT IN REACH.
[2024-07-01 07:12] VITALS: BP 103/50
--- NOTE | 2024-07-01 08:05 | NUR ---
UPDATE PT AGITATED, IRRITABLE, STATING HE IS NOT GETTING ANY BETTER AT THIS HOSPITAL. SPITTING ON FLOOR, BELCHING FREQUENTLY. REPORTS NO PAIN RELIEF. PAIN 7/10, YELLING, MOANING. PT HAS REPORTED 2 EPISODES FLATUS TONIGHT. ASKS FOR US TO NOT DO BEDSIDE REPORT IN HIS RM STATING HE IS "NOT IN THE MOOD". CALLS WITHIN 5 MIN OF LEAVING RM STATING HE CALLED ALONG TIME AGO & IS ABOUT TO "SHIT HIS PANTS". HELPED PT TO BSC. PT HAD MED SOFT, LOOSE ROWAN BM-VERY FOUL ODOR. PT VERY IRRITABLE REGARDING HIS PAIN NOT GETTING BETTER. TRIED EDUCATING PT NOW THAT HIS BOWELS ARE MOVING HE MAY EXPERIENCE MORE PAIN. PT KEPT INTERUPTING & NOT ALLOWING NURSE TO FINISH TALKING, INFORMED PT I WOULD PASS TO DAY RN THAT HE WANTS PAIN MEDS. CALL LIGHT IN REACH.
[2024-07-01] MEDS ORDERED: HYDROmorphone HCl/Pf 1MG SYR IV PRN (08:30)
--- NOTE | 2024-07-01 10:00 | NUR ---
PT HAS REPORTED INCREASED ABD PAIN AND NAUSEA TODAY STARTING AT APPROXIMATELY 0700, HE RATES PAIN AT 7/10 AND IS THRASHING/RESTLESS IN BED. WHEN PT IS LEFT TO REST, HE RESTS QUIETLY WITH HIS EYES CLOSED, BUT WAKES AND YELLS OUT TO STAFF ABOUT PAIN. PT'S ABD IS DISTENDED/FIRM. PT HAS ACTIVE BOWEL SOUNDS AND HAS HAD SEVERAL BOWEL MOVEMENTS. PT VOMITED X1. PT REPORTS FENTANYL DID NOT IMPROVE PAIN. PT WAS ALSO GIVEN TORADOL WITH NO RELIEF. SPOKE WITH DR. KEBEDE REGARDING INCREASED PAIN AND NAUSEA. SHE CHANGED PAIN MEDICATION FROM FENTANYL TO DILAUDID. DR. WU NOTIFIED OF CHANGE.
--- NOTE | 2024-07-01 11:59 | NUR ---
PAIN PT NOW HAS IMPROVED PAIN CONTROL WITH DILAUDID. HE IS RESTING IN BED WITH EYES CLOSED. CALL LIGHT WITHIN REACH.
[2024-07-01] MEDS ORDERED: Sennosides 8.6 MG Tab PO PRN (13:10)
[2024-07-01] MEDS ORDERED: Metoclopramide HCl 5MG / ML 2ML Vial IV PRN (13:55)
[2024-07-01] MEDS ORDERED: buprenorphine HCL 2 MG TAB.SUBL SL SCH (14:00)
[2024-07-01 14:41] VITALS: BP 146/75
[2024-07-01 15:43] VITALS: BP 123/71
--- NOTE | 2024-07-01 17:30 | NUR ---
DESATURATION PT VOMITED AND DESATURATED TO 87% WITHOUT CONSISTANT IMPROVEMENT. PT CONTINUED TO HOVER AT 87-91%. PT PLACED ON 2L O2 VIA NC. DR. KEBEDE NOTIFIED AND A CHEST XRAY WAS ORDERED.
[2024-07-01 19:27] VITALS: BP 131/99
--- NOTE | 2024-07-01 19:36 | NUR ---
SHIFT SUMMARY PT APPEARED TO HAVE RETURN OF BOWEL FUNCTION THIS AM, PT HAD 3 BMS AND STARTED PASSING FLATUS. PT HAS CONTINUED TO PASS FLATUS TODAY BUT NO MORE BMS. NAUSEA AND VOMITING HAS INCREASED T/O THE DAY. DR. KEBEDE NOTIFIED THIS EVENING OF CONTINUED VOMITING, ABD XRAY ORDERED. CHEST XRAY ALSO ORDERED SINCE PT DESATURATED AFTER VOMITING THIS EVENING, AND REQUIRED 2L O2 VIA NC. PT IS ON CONTINUOUS PULSE OX. ZOFRAN AND REGLAN APPEAR TO BE MINIMALLY EFFECTIVE. BUPENORPHINE RESTARTED. DILAUDID IS HELPFUL FOR PAIN MANAGMENT. PT USES CALL LIGHT APPROPRIATELY. VSS. BEDSIDE REPORT GIVEN TO CHIP ARIAS.
[2024-07-02] MEDS ORDERED: NS 250 ML IV SCH (00:20)
--- NOTE | 2024-07-02 02:39 | NUR ---
PT BEHAVIOR PT UNRECEPTIVE TO DISCUSSION OF PLAN OF CARES, EDUCATION, & NURSING INTERVENTIONS. WHEN RN AT BEDSIDE FOR ASSESSMENT, MED ADMINISTRATION, OXYGEN TITRATION, PT RAISES VOICE AT THIS RN AND SAYS, "I DON'T FEEL LIKE DOING THIS RIGHT NOW, PLEASE LEAVE ME ALONE". THIS RN ASKED PT TO ELABORATE, PT STATES, "I JUST WANT SLEEP I DON'T WANT TO DO ALL THIS". THIS RN EXPLAINED WHAT WAS BEING COMPLETED, INCLUDING ADMINISTRATION OF IV ABX, TITRATION OF OXYGEN, ADJUSTING TELEMTRY LEADS PRN. PT STATES, "YOU ARE NOT VERY EFFICIENT, AND I AM SAYING THAT SARCASTICALLY". THIS RN REASSURED PT THAT BEST EFFORTS ARE BEING MADE TO CLUSTER CARES TO PROMOTE UNINTERRUPTED REST, HOWEVER IF ALARMS ARE SHOWING PT WITH OXYGEN DESATURATIONS, FOR EXAMPLE, THIS RN IS OBLIGATED TO ENTER ROOM, ASSESS PT, & INTERVENE APPROPRIATELY TO ENSURE PT SAFETY. PT VOICED UNDERSTANDING. DENIES FURTHER QUESTIONS/CONCERNS.
--- NOTE | 2024-07-02 04:01 | NUR ---
SHIFT SUMMARY NO ACUTE CHANGES OVERNIGHT. ENDORSES DIFFUSE ABD PAIN, NAUSEA, VOMITING. PAIN MANAGED UTILIZING NPIS AND PER EMAR. IV ZOFRAN & IV REGLAN EFFECTIVE FOR REDUCING NAUSEA. VOIDING. TOLERATING CLEAR LIQUIDS. MULTIPLE LARGE, LOOSE STOOLS OVERNIGHT (BRISTOL STOOL TYPE 6). REQUIRED 2L NC OVERNIGHT. CONTINUOS PULSE OXIMETRY IN PLACE. DENIES SOB OR DYSPNEA; BREATHING UNLABORED & REGULAR, SPO2 MAINTAINED >90% WITH OXYGEN OVERNIGHT. PT ABLE TO REST DURING SHIFT. A&OX4, ABLE TO VOICE NEEDS. PT VOICED UNDERSTANDING PLAN OF CARE, DENIES QUESITONS/CONCERNS AT THIS TIME.
[2024-07-02 04:32] VITALS: BP 110/66
[2024-07-02 05:27] LABS: Hematocrit 33.4 % (37.0-53.0); Hemoglobin 10.8 g/dL (13.5-17.5); Mean Corpuscular HGB 28.4 pg (26.0-34.0); Mean Corpuscular HGB Conc 32.3 g/dL (31.5-36.5); Mean Corpuscular Volume 88 fL (80-100); Mean Platelet Volume 11.1 fL (9.1-12.4); Platelet Count 248 K/mm3 (150-400); RDW Coefficient Variation 15.6 % (11.7-14.2); RDW Standard Deviation 50.1 fL (35.1-46.3); White Blood Cell Count 9.27 K/mm3 (4.00-11.30)
[2024-07-02 05:59] LABS: Albumin, Blood 2.3 g/dL (3.4-5.0); Albumin/Globulin Ratio 0.5 (0.8-1.8); Bilirubin, Total 0.4 mg/dL (0.1-1.0); Bun/Creatinine Ratio 25.6 (12.0-20.0); Calcium, Blood 8.4 mg/dL (8.5-10.1); Creatinine, Blood 0.59 mg/dL (0.60-1.20); Globulin, Blood 4.2 g/dL (2.2-4.0); Magnesium, Blood 1.7 mg/dL (1.6-2.4); Phosphorus, Blood 2.2 mg/dL (2.5-4.9); Potassium, Blood 2.9 mmol/L (3.5-5.5); Total Protein, Blood 6.5 g/dL (6.4-8.2)
[2024-07-02 06:22] LABS: BAND PERCENT MAN 43 % (0-8); BASOPHILS ABSOLUTE MAN 0.09 K/mm3 (0.00-0.23); BASOPHILS PERCENT MAN 1 % (0-2); EOSINOPHILS PERCENT MAN 0 % (0-6); LYMPHOCYTES ABSOLUTE MAN 1.01 K/mm3 (0.84-5.20); LYMPHOCYTES PERCENT MAN 11 % (21-46); MONOCYTES ABSOLUTE MAN 1.57 K/mm3 (0.16-1.47); MONOCYTES PERCENT MAN 17 % (4-13); MYELOCYTE ABSOLUTE MAN 0.09 K/mm3 (0.00-0.00); MYELOCYTE PERCENT MAN 1 % (0-0); NEUTROPHILS ABSOLUTE MAN 6.48 K/mm3 (1.96-9.15); SEG NEUTROPHILS PERCENT MAN 27 % (41-73); TOTAL CELLS COUNTED 100
--- NOTE | 2024-07-02 06:38 | NUR ---
PT SLEEP PT EXPRESSED FRUSTRATION WITH LACK OF SLEEP. THIS RN OBSERVED PT T/O SHIFT SLEEPING OR RESTING QUIETLY WITH EYES CLOSED FOR MINIMUM OF 45 MIN OF EVERY HOUR. THIS RN APOLOGIZED, DISCUSSED HOSPITAL SETTING NOT IDEAL FOR FULLY RESTFUL SLEEP D/T FREQUENT NURSING ASSESSMENTS, ALARMS, OUT OF NORMAL HOME ENVIRONMENT ETC. DISCUSSED CLUSTER CARES & WAYS TO MAXIMIZE UNINTERRUPTED REST WHILE IN HOSPITAL. PT VOICED UNDERSTANDING, IN AGREEANCE WITH PLAN.
[2024-07-02 07:18] VITALS: BP 110/52
[2024-07-02] MEDS ORDERED: Magnesium Sulf 2 GM/Water 50ML 50 ML IV ONE (08:15)
[2024-07-02] MEDS ORDERED: Potassium Chloride 20 MEQ/15 ML UDC PO SCH (08:30)
[2024-07-02 10:20] VITALS: BP 91/78
[2024-07-02 18:13] VITALS: BP 124/71
--- NOTE | 2024-07-02 19:33 | NUR ---
SHIFT SUMMARY S/P SBO, A/OX4, VSS, TOLERATING CLEARS, REFUSED HALF OF HIS LUNCH DOSE OF POTASSIUM AND HIS EVENING DOSE, GETS UP AND RIPS OFF HIS OXIMETRY AND OXYGEN TO USE BSC AND BLAMES STAFF FOR NOT MAKING THE CORDS LONG ENOUGH, BSC WAS PLACED RIGHT NEXT TO HIS BED, PT DOES NOT CALL FOR ASSISTANCE WITH GETTING UP OR MOVING AROUND HIS ROOM WHICH HE IS ABLE TO DO INDEPENDTLY BUT HE IS NOT ABLE TO MANAGE HIS CORDS/LINES. PT STATES HE IS LEAVING IN THE AM TO MAKE SURE HIS STUFF DOESN'T GET STOLEN HE STATES HIS LANDLORD IS A DRUNK.
[2024-07-02 20:02] VITALS: BP 125/71
--- NOTE | 2024-07-02 20:45 | NUR ---
PT TRANSFER NO ACUTE CHANGES SINCE 1844. REPORT GIVEN TO [facility] FLOOR NURSE @ APPROX 2043. A&O x4, MINIMALLY COMPLIANT c CARE. PT ON 2L O2 VIA NC, CONT BOIX IN USE - PT FREQUENTLY SELF REMOVES. TELE IN USE - SINUS @ 68, PT FREQUENTLY REMOVES LEADS. PT TOLERATING LIQUIDS, REPORTS NAUSEA, MEDICATED PER EMAR c RELIEF. USES URINAL / BSC INDEPENDENTLY. FREQUENT BMs T/O DAY. PT REPORTS PAIN TOLERABLE AT THIS TIME. ALL PERSONAL BELONGINGS TRANSPORTED c PT. PT EDUCATED ON TRANSFER TO NEW UNIT. TRANSFERRED VIA BED TO [facility].
[2024-07-02 21:21] VITALS: BP 123/74
[2024-07-03 05:05] VITALS: BP 126/58
[2024-07-03 07:45] VITALS: BP 122/72
[2024-07-03 08:40] LABS: Albumin, Blood 2.2 g/dL (3.4-5.0); Anion Gap 7 mmol/L (3-11); Blood Urea Nitrogen 13 mg/dL (8-24); Bun/Creatinine Ratio 19.8 (12.0-20.0); CO2, Blood 34 mmol/L (21-32); Calcium, Blood 8.4 mg/dL (8.5-10.1); Chloride, Blood 100 mmol/L (98-108); Creatinine, Blood 0.66 mg/dL (0.60-1.20); Glomerular Filtration Rate 103 (60-); Glucose, Blood 118 mg/dL (70-99); Phosphorus, Blood 2.3 mg/dL (2.5-4.9); Potassium, Blood 3.3 mmol/L (3.5-5.5); Sodium, Blood 138 mmol/L (136-145)
[2024-07-03] MEDS ORDERED: Potassium Phosphate,Monobasic 500 MG Tablet PO SCH (10:35)
--- NOTE | 2024-07-03 13:01 | NUR ---
ASKING FOR SOMETHING FOR "CRAMPING". DISCUSSED DILAUDID IV IS DC'D AND PT STILL HAS NORMALLY SCHEDULED SABOXONE. PT STATES THIS IS THE PROBLEM WITH THIS [facility] AND ALL OF THE DOCTORS IN THIS AREA. STATES IF A DOCTOR WOULD JUST GIVE HIM A CORTISONE SHOT IN HIS BACK EVERYTHING WOULD BE FINE. EXPLAINED TO PT HE IS CURRENTLY BEING TREATED FOR HIS SBO AND NOT HIS CHRONIC BACK PAIN. ADVISED SPEAKING WITH HIS PCP. STATES DOES NOT HAVE A PCP THE LAST 3 HAVE FIRED HIM. ASKED PT WHERE HE IS GETTING HIS SABOXONE, STATES FROM A ONLINE COMPANY. ATTEMPTED TO FURTHER DISCUSS PCP OPTIONS AND PT TELL THIS RN MY VOICE IS TO LOUD AND I AM FIRING QUESTIONS AT HIM. A FEW MINUTES LATER ASKS TO GO HOME. DR. MANZANO UPDATED, DISCHARGE PAPERWORK TO BE ENTERED.
--- NOTE | 2024-07-03 14:24 | NUR ---
IN HALLWAY DRESSED AND ASKING WHICH DIRECTION TO EXIT. EXPLAINED DISCHARGE PAPERWORK HASN'T BEEN COMPLETED YET. PT STATES YOU PEOPLE HAVE A PROBLEM WITH COMMUNICATION, DO YOU EVEN HAVE A ? CONTINUES TO WALK FROM ROOM, DECLINES TO WAIT FOR PAPERWORK. HEADS TOWARDS ELEVATORS. [facility] WAS CALLED BY CASE MANAGMENT, WILL BE AT PT ENTRANCE.
--- NOTE | 2024-07-03 14:33 | NUR ---
IV REMOVED BY [facility] PRIOR TO PT LEAVING UNIT.
[2024-07-03] MEDS ORDERED: AMOCLA875 PO (14:52)
--- NOTE | 2024-07-03 14:54 | NUR ---
MEDICATION LIST FAXED TO [facility].
== END 2024-07-03 14:24 | disposition home or self-care (01) | DRG 386 ==
LOC: ER 16:03 → SURS 19:32 → MEDS 19:32 → SURS 21:45 → MEDS 07-02 21:16
PROVIDERS: Hospitalist; Internal Medicine; Student in an Organized Health Care Education/Training Program; Surgery; ADMIT Internal Medicine
DX: K50.00 Crohn's disease of small intestine without complications (principal); E87.1 Hypo-osmolality and hyponatremia; K56.600 Partial intestinal obstruction, unspecified as to cause; M54.9 Dorsalgia, unspecified; K46.9 Unspecified abdominal hernia without obstruction or gangrene; M46.1 Sacroiliitis, not elsewhere classified; I10 Essential (primary) hypertension; G89.29 Other chronic pain; D64.9 Anemia, unspecified; R73.9 Hyperglycemia, unspecified; K75.9 Inflammatory liver disease, unspecified; H54.62 Unqualified visual loss, left eye, normal vision right eye; Z98.890 Other specified postprocedural states; Z87.891 Personal history of nicotine dependence; Z79.899 Other long term (current) drug therapy; Z91.51 Personal history of suicidal behavior; Z98.1 Arthrodesis status; Z87.19 Personal history of other diseases of the digestive system
CPT/HCPCS: 36415; 71045; 74018; 74177; 80048; 80053; 80069; 82140; 83605; 83690; 83735; 83880; 84100; 84484; 85025; 85027; 93005; 93010; 94762; 99285-25; A9270; J1171; J1885; J2405; J2543; J2765; J3010; J3475; J7030; J7050; J7120; Q9967

== ENCOUNTER → 2024-10-05 | Outpatient (CLI) | payer MEDICARE, OTHER ==
[~2024-10-05] MED LIST changes: +AMOCLA875 PO
== END ==
LOC: LAB 17:11 → LAB SHORT 17:11
DX: R35.0 Frequency of micturition (principal)
CPT/HCPCS: 87077; 87086; 87186

== ENCOUNTER 2024-12-24 04:58 | Emergency (ER) | payer MEDICARE, OTHER ==
[~2024-12-24] VITALS: Ht 185.4 cm; Wt 104.3 kg
[2024-12-24 05:25] VITALS: BP 165/134
[2024-12-27] MEDS ORDERED: PROBIOTIC1 EA13 PO (04:37)
[2024-12-27] MEDS ORDERED: CIPR500 PO (04:37)
== END 2024-12-24 06:29 | disposition left against medical advice (07) ==
LOC: ER 04:58
DX: R32 Unspecified urinary incontinence (principal); R30.0 Dysuria; Z87.891 Personal history of nicotine dependence; Z53.29 Procedure and treatment not carried out because of patient's decision for other reasons
CPT/HCPCS: 99281

== ENCOUNTER 2025-08-05 10:25 | Emergency (ER) | payer MEDICARE, OTHER ==
[~2025-08-05] VITALS: Ht 185.4 cm; Wt 102.1 kg
[~2025-08-05 10:25] MED LIST changes: +CIPR500 PO; +PROBIOTIC1 EA13 PO
[2025-08-05] MEDS ORDERED: IBUP600 PO (14:40)
[2025-08-05] MEDS ORDERED: CEPH500 PO (14:40)
[2025-08-05 15:00] VITALS: BP 127/90
== END 2025-08-05 15:16 | disposition home or self-care (01) ==
LOC: ER 10:25
DX: S82.61XA Displaced fracture of lateral malleolus of right fibula, initial encounter for closed fracture (principal); L03.012 Cellulitis of left finger; Z87.891 Personal history of nicotine dependence; Z79.899 Other long term (current) drug therapy; V59.88XA Occupant (driver) (passenger) of pick-up truck or van injured in other specified transport accidents, initial encounter
CPT/HCPCS: 73610; 99283-25; A9270